=== PATIENT | male | born 1950 | race Caucasian/White ===

== ENCOUNTER 2020-10-19 19:05 | Inpatient (IN) | payer MEDICARE ==
[~2020-10-19] VITALS: Ht 165.1 cm; Wt 81.1 kg
[~2020-10-19 19:05] MED LIST: PIPERACILLIN/TAZOBACTAM (BULK) 4.5 GM in NS (IVPB) 100 ML IV SCH
--- NOTE | 2020-10-19 19:26 | ED Abdominal Pain ---
General Stated Complaint: LOWER ABDOMINAL PAIN Source of Information: Patient Exam Limitations: No Limitations History of Present Illness Date Seen by Provider: Oct 19, 2020 Time Seen by Provider: 19:11 Initial Comments Patient to the emergency room by private conveyance from home with chief complaint that today he started to spearing seeing some left lower quadrant abdominal pain that peaked at about 8 out of 10, cramping and worse with movement or urinating. No dysuria or hematuria. He says he is had blood in his stools for the last year or so off and on and had a colonoscopy about a year and a half ago which revealed nothing pathologic. He does have a history of diverticulitis. He has had no trauma. He took a Fioricet and ondansetron about 2 to 3 hours ago. His pain went from an 8 down to a 4 presently. His nausea is gone still. He has had 2 inguinal hernia repairs but no other intra-abdominal surgeries. He denies fever or chills. Last bowel movement was yesterday. Allergies and Home Medications Allergies Coded Allergies: prochlorperazine (Verified Allergy, Unknown, Psychosis, 10/19/20) Patient Home Medication List Home Medication List Reviewed: Yes Review of Systems Review of Systems Constitutional: No chills, No diaphoresis EENTM: No Blurred Vision, No Double Vision Respiratory: Denies Cough, Denies Shortness of Air Cardiovascular: Denies Chest Pain, Denies Lightheadedness Gastrointestinal: See HPI; Denies Abdomen Distended; Abdominal Pain, Blood Streaked Stools; Denies Constipated, Denies Diarrhea; Nausea; Denies Vomiting Genitourinary: Denies Burning, Denies Discharge Musculoskeletal: No back pain, No joint pain Skin: No pruritus, No rash, No other Psychiatric/Neurological: Denies Headache, Denies Numbness All Other Systems Reviewed Negative Unless Noted: Yes Past Ojfvwdr-Pmaott-Dlyllg Hx Patient Social History Alcohol Use: Denies Use Smoking Status: Never a Smoker Physical Exam Vital Signs Vital Signs - First Documented 10/19/20 19:12 Temp 37.6 Pulse 120 Resp 14 B/P (MAP) 157/97 (117) Pulse Ox 98 O2 Delivery Room Air Capillary Refill : Height/Weight/BMI Height: '" Weight: lbs. oz. kg; BMI Method: General Appearance: WD/WN, moderate distress HEENT: PERRL/EOMI, pharynx normal Neck: full range of motion, normal inspection Respiratory: no respiratory distress, no accessory muscle use Cardiovascular: normal peripheral pulses, regular rate, rhythm Gastrointestinal: normal bowel sounds, soft, tenderness (Left lower quadrant without Rovsing sign) Neurologic/Psychiatric: alert, oriented x 3 Skin: normal color, warm/dry Focused Exam Lactate Level 10/19/20 19:30: Lactic Acid Level 1.93 Lactic Acid Level Laboratory Tests Test 10/19/20 19:30 Lactic Acid Level 1.93 MMOL/L (0.50-2.00) Progress/Results/Core Measures Results/Orders Lab Results Laboratory Tests Test 10/19/20 19:15 10/19/20 19:30 10/19/20 20:11 Range/Units White Blood Count 24.0 H 4.3-11.0 10^3/uL Red Blood Count 5.14 4.35-5.85 10^6/uL Hemoglobin 14.9 13.3-17.7 G/DL Hematocrit 43 40-54 % Mean Corpuscular Volume 83 80-99 FL Mean Corpuscular Hemoglobin 29 25-34 PG Mean Corpuscular Hemoglobin Concent 35 32-36 G/DL Red Cell Distribution Width 12.6 10.0-14.5 % Platelet Count 385 130-400 10^3/uL Mean Platelet Volume 8.9 7.4-10.4 FL Immature Granulocyte % (Auto) 0 % Neutrophils (%) (Auto) 90 H 42-75 % Lymphocytes (%) (Auto) 5 L 12-44 % Monocytes (%) (Auto) 4 0-12 % Eosinophils (%) (Auto) 0 0-10 % Basophils (%) (Auto) 0 0-10 % Neutrophils # (Auto) 21.7 H 1.8-7.8 X 10^3 Lymphocytes # (Auto) 1.3 1.0-4.0 X 10^3 Monocytes # (Auto) 0.9 0.0-1.0 X 10^3 Eosinophils # (Auto) 0.1 0.0-0.3 10^3/uL Basophils # (Auto) 0.0 0.0-0.1 10^3/uL Immature Granulocyte # (Auto) 0.1 0.0-0.1 10^3/uL Neutrophils % (Manual) 93 % Lymphocytes % (Manual) 3 % Monocytes % (Manual) 4 % Target Cells NA Prothrombin Time 12.9 12.2-14.7 SEC INR Comment 0.9 0.8-1.4 Activated Partial Thromboplast Time 26 24-35 SEC Sodium Level 136 135-145 MMOL/L Potassium Level 3.7 3.6-5.0 MMOL/L Chloride Level 99 98-107 MMOL/L Carbon Dioxide Level 27 21-32 MMOL/L Anion Gap 10 5-14 MMOL/L Blood Urea Nitrogen 19 H 7-18 MG/DL Creatinine 1.09 0.60-1.30 MG/DL Estimat Glomerular Filtration Rate > 60 BUN/Creatinine Ratio 17 Glucose Level 150 H 70-105 MG/DL Calcium Level 10.0 8.5-10.1 MG/DL Corrected Calcium 8.5-10.1 MG/DL Total Bilirubin 0.4 0.1-1.0 MG/DL Aspartate Amino Transf (AST/SGOT) 37 H 5-34 U/L Alanine Aminotransferase (ALT/SGPT) 42 0-55 U/L Alkaline Phosphatase 79 40-136 U/L Total Protein 7.7 6.4-8.2 GM/DL Albumin 4.6 H 3.2-4.5 GM/DL Lactic Acid Level 1.93 0.50-2.00 MMOL/L Urine Color YELLOW Urine Clarity CLEAR Urine pH 7.0 5-9 Urine Specific Earth 1.010 L 1.016-1.022 Urine Protein NEGATIVE NEGATIVE Urine Glucose (UA) NEGATIVE NEGATIVE Urine Ketones NEGATIVE NEGATIVE Urine Nitrite NEGATIVE NEGATIVE Urine Bilirubin NEGATIVE NEGATIVE Urine Urobilinogen 0.2 < = 1.0 MG/DL Urine Leukocyte Esterase NEGATIVE NEGATIVE Urine RBC (Auto) NEGATIVE NEGATIVE Urine RBC 0-2 /HPF Urine WBC NONE /HPF Urine Squamous Epithelial Cells 0-2 /HPF Urine Crystals NONE /LPF Urine Bacteria NEGATIVE /HPF Urine Casts NONE /LPF Urine Mucus NEGATIVE /LPF Urine Culture Indicated NO My Orders Orders - [facility] Cbc With Automated Diff (10/19/20 19:26) Comprehensive Metabolic Panel (10/19/20 19:26) Blood Culture (10/19/20 19:26) Sputum Culture (10/19/20:) Urinalysis (10/19/20:) Urine Culture (10/19/20 19:) Protime With Inr (10/19/20 19:) Partial Thromboplastin Time (10/19/20:) Chest 1 View Ap/Pa Only (10/19/20:) Ed Iv/Invasive Line Start (10/19/20:) Ed Iv/Invasive Line Start (10/19/20:) Vital Signs Adult Sepsis Patie Q15M (10/19/20:26) O2 (10/19/20:) Remove Rings In Anticipation O (10/19/20:) Lactic Acid Analyzer (10/19/20:) Lactated Ringers (Lr 1000 Ml Iv Solution (10/19/20 19:30) Ceftriaxone For Iv Use (Rocephin For I (10/19/20:) Metronidazole 500mg/100ml Ivpb (Flagyl 5 (10/19/20:30) Ed Iv/Invasive Line Start (10/19/20:26) Lactated Ringers (Lr 1000 Ml Iv Solution (10/19/20:30) Fentanyl Inj (Sublimaze Injection) (10/19/20:30) Lactated Ringers (Lr 1000 Ml Iv Solution (10/19/20 19:30) Ct Abdomen/Pelvis W (10/19/20:26) Manual Differential (10/19/20 19:15) Iohexol Injection (Omnipaque 350 Mg/Ml 1 (10/19/20 19:45) Received Contrast (Hold Metformin- Contr (10/19/20 19:45) Ns (Ivpb) (Sodium Chloride 0.9% Ivpb Bag (10/19/20 19:45) Fentanyl Inj (Sublimaze Injection) (10/19/20 21:30) Medications Given in ED Current Medications Medications Dose Ordered Sig/Panfilo Route Start Time Stop Time Status Last Admin Dose Admin Ceftriaxone Sodium 1000 mg/ Sterile Water 10 ml @ 200 mls/hr ONCE ONCE IV 10/19/20 19:30 10/19/20 19:32 DC 10/19/20 19:45 200 MLS/HR Fentanyl Citrate 25 mcg ONCE ONCE IVP 10/19/20 19:30 10/19/20 19:31 DC 10/19/20 19:45 25 MCG Iohexol 100 ml ONCE ONCE IV 10/19/20 19:45 10/19/20 19:46 DC 10/19/20 19:56 100 ML Lactated Ringer's 1,000 ml @ 0 mls/hr Q0M ONCE IV 10/19/20 19:30 10/19/20 19:31 DC 10/19/20 19:45 999 MLS/HR Lactated Ringer's 1,000 ml @ 0 mls/hr Q0M ONCE IV 10/19/20 19:30 10/19/20 19:31 DC 10/19/20 21:06 1,000 MLS/HR Metronidazole 100 ml @ 100 mls/hr ONCE ONCE IV 10/19/20 19:30 10/19/20 20:29 DC 10/19/20 19:45 100 MLS/HR Sodium Chloride 100 ml ONCE ONCE IV 10/19/20 19:45 10/19/20 19:46 DC 10/19/20 19:56 100 ML Vital Signs/I&O 10/19/20 10/19/20 10/19/20 19:12 20:10 21:10 Temp 37.6 37.6 37.1 Pulse 120 109 100 Resp 14 14 14 B/P (MAP) 157/97 (117) 133/76 (95) 132/80 (97) Pulse Ox 98 98 99 O2 Delivery Room Air Room Air Progress Progress Note : Time: 19:29 Progress Note Suspect diverticulitis less likely bowel obstruction, appendicitis or other general colitis. Because the pain got worse when he urinated this could be an indicator of inflammation from the bowel or less likely urine related. Sepsis work-up based on his tachycardia of 120 and suspect he will have a elevated white count. 2 L would be greater than 20 mL/kg of fluids. Rocephin and Flagyl should cover for intra-abdominal infection such as diverticulitis. He is indicated he would like something further for pain so we will give 25 mcg of fentanyl since he is opiate ina. Diagnostic Imaging Diagonstic Imaging: Xray Plain Films/CT/US/NM/MRI: chest Comments NAME: DELICIA RADER Kristine [facility] REC#: [id number] PT STATUS: REG ER : 1950 PHYSICIAN: [place] MD ADMIT DATE: 10/19/20/ER FS Draft Date of Exam:10/19/20 CHEST 1 VIEW AP/PA ONLY INDICATION: Chest and abdomen pain. EXAMINATION: AP chest at 8:01 p.m. COMPARISON: There is no prior study available for comparison. FINDINGS: The heart size is within normal limits. There is minimal atelectasis/scar formation at the left lung base. The lungs are otherwise generally clear. There is no sign of failure, pneumonia or a pleural effusion. The mediastinum is not widened. The osseous structures are intact. There is fairly pronounced dextroscoliosis of the thoracic spine. IMPRESSION: 1. There is minimal atelectasis/scar formation at the left lower lobe. There is no acute cardiopulmonary abnormality noted. 2. These results were discussed with Dr. Dain Lake. Dictated on workstation # [id number] Dict: 10/19/202107 Trans: 10/19/202113 [facility] [id number] Interpreted by: DELICIA GUTIERREZ MD Electronically signed by: Reviewed: Reviewed by Me Diagonstic Imaging: CT Plain Films/CT/US/NM/MRI: abdomen, pelvis Comments NAME: PRASANTHDELICIA Carmona [facility] REC#: [id number] PT STATUS: REG ER : 1950 PHYSICIAN: [place] MD ADMIT DATE: 10/19/20/ER FS Draft Date of Exam:10/19/20 CT ABDOMEN/PELVIS W PROCEDURE: CT abdomen and pelvis with contrast. TECHNIQUE: Multiple contiguous axial images were obtained through the abdomen and pelvis after administration of intravenous contrast. Auto Exposure Controls were utilized during the CT exam to meet ALARA standards for radiation dose reduction. All CT scans use one or more of the following dose optimizing techniques: automated exposure control, MA and/or KvP adjustment based on patient size and exam type or iterative reconstruction. INDICATION: Left lower quadrant pain. COMPARISON: There is no prior study available for comparison. FINDINGS: There are numerous diverticula involving the sigmoid and descending colon and there appears to be some thickening of the wall of the junction of the sigmoid and descending colon. There is also some distortion of the pericolic fat in this area and I suspect these findings are related to acute diverticulitis. Furthermore, there are few scattered droplets of gas throughout the upper abdomen. These are probably related to a microperforation of the diverticular disease. There are also two sizable gallstones within the gallbladder. There is no evidence for acute cholecystitis, however. The liver, spleen, pancreas, adrenals, kidneys, aorta and inferior vena cava and portal vein are unremarkable for an acute abnormality. The stomach is filled with fluid and difficult to assess. The urinary bladder and prostate gland are grossly unremarkable. There does appear to be a small amount of fluid within the left inguinal canal. This is of uncertain etiology. The appendix appears to be surgically absent. The bone windows are unremarkable for a fracture or for a destructive lesion. The lung bases are generally clear. IMPRESSION: 1. There is acute diverticulitis of the sigmoid and distal descending colon. The droplets of gas in the upper abdomen are probably secondary to a microperforation related to the diverticular disease of the sigmoid and descending colon. 2. There is cholelithiasis but there is no sign of acute cholecystitis. 3. There is no acute abnormality of the abdomen or pelvis noted otherwise. 4. There is a small amount of fluid in the left inguinal canal. This is of uncertain etiology. 5. These results were discussed with Dr. Dain Lake at the time of this dictation. Dictated on workstation # [id number] Dict: 10/19/202101 Trans: 10/19/202121 [facility] [id number] Interpreted by: DELICIA GUTIERREZ MD Electronically signed by: Reviewed: Reviewed by Me Departure Communication (Admissions) Time/Spoke to Admitting Phy: 21:20 Discussed the case with Dr. Castro, internal medicine and he agrees to admit the patient to the floor with consultation to general surgery [facility]. He agrees with antibiotics Rocephin and Flagyl. Time/Spoke to Consulting Phy: 21:23 Discussed the case of diverticulitis, benign gallstones and small amount of free air in the abdomen without evidence of major perforation with general surgery Dr. Saez and he is okay with a clear liquid diet and will consult on the case. Impression Primary Impression: Diverticulitis of intestine Qualified Codes: K57.32 - Diverticulitis of large intestine without perforation or abscess without bleeding Additional Impression: Sepsis Qualified Codes: A41.9 - Sepsis, unspecified organism Disposition: ADMITTED INPATIENT Condition: Stable Admissions Decision to Admit Reason: Admit from ER (General) Decision to Admit/Date: Oct 19, 2020 Time/Decision to Admit Time: 20:00 Departure-Patient Inst. Referrals: NACHO ARANA MD (PCP/Family) Primary Care Physician [facility] Oct 19, 2020 19:26
[2020-10-19 19:30] LABS: BASOPHILS % (AUTO) 0 % (0-10); EOSINOPHILS # (AUTO) 0.1 10^3/uL (0.0-0.3); EOSINOPHILS % (AUTO) 0 % (0-10); HEMATOCRIT 43 % (40-54); HEMOGLOBIN 14.9 G/DL (13.3-17.7); LYMPHOCYTES # (AUTO) 1.3 X 10^3 (1.0-4.0); LYMPHOCYTES % (AUTO) 5 % (12-44); MEAN CORPUSCULAR HEMOGLOBIN 29 PG (25-34); MEAN CORPUSCULAR HGB CONC 35 G/DL (32-36); MEAN CORPUSCULAR VOLUME 83 FL (80-99); MEAN PLATELET VOLUME 8.9 FL (7.4-10.4); MONOCYTES # (AUTO) 0.9 X 10^3 (0.0-1.0); MONOCYTES % (AUTO) 4 % (0-12); NEUTROPHILS # (AUTO) 21.7 X 10^3 (1.8-7.8); NEUTROPHILS % (AUTO) 90 % (42-75); PLATELET COUNT 385 10^3/uL (130-400)
[2020-10-19] MEDS ORDERED: metroNIDAZOLE 500MG/100ML IVPB 100 ML IV ONE (19:30)
[2020-10-19] MEDS ORDERED: fentaNYL INJ 100 MCG/2 ML AMP IVP ONE ×2 (19:30→21:30)
[2020-10-19] MEDS ORDERED: LACTATED RINGERS 1,000 ML IV ONE ×3 (19:30)
[2020-10-19] MEDS ORDERED: cefTRIAXone FOR IV USE 1,000 MG in WATER (STERILE) FOR INJECTION 10 ML IV ONE (19:30)
[2020-10-19 19:41] LABS: INR 0.9 (0.8-1.4); PROTHROMBIN TIME PATIENT 12.9 SEC (12.2-14.7)
[2020-10-19] MEDS ORDERED: NS 100 ML (IVPB) BAG IV ONE (19:45)
[2020-10-19] MEDS ORDERED: HOLD METFORMIN - RECEIVED CONTRAST 20 ML VIAL IV SCH (19:45)
[2020-10-19] MEDS ORDERED: IOHEXOL 350 MG/ML 100 ML (OMNIPAQUE 350) VIAL IV ONE (19:45)
[2020-10-19 19:48] LABS: ALANINE AMINOTRANSFERASE 42 U/L (0-55); ALBUMIN 4.6 GM/DL (3.2-4.5); ALKALINE PHOSPHATASE 79 U/L (40-136); BILIRUBIN,TOTAL 0.4 MG/DL (0.1-1.0); BUN/CREATININE RATIO 17; CARBON DIOXIDE 27 MMOL/L (21-32); CHLORIDE 99 MMOL/L (98-107); CREATININE SERUM 1.09 MG/DL (0.60-1.30); GFR ESTIMATED > 60; GLUCOSE 150 MG/DL (70-105); POTASSIUM 3.7 MMOL/L (3.6-5.0); SODIUM 136 MMOL/L (135-145); TOTAL PROTEIN 7.7 GM/DL (6.4-8.2)
[2020-10-19 19:49] LABS: LYMPHOCYTES % (MANUAL) 3 %; MONOCYTES % (MANUAL) 4 %; NEUTROPHILS % (MANUAL) 93 %
[2020-10-19 20:19] LABS: BACTERIA,URINE NEGATIVE /HPF; BILIRUBIN,URINE NEGATIVE (NEGATIVE); CLARITY,URINE CLEAR; COLOR,URINE YELLOW; GLUCOSE, URINE (UA) NEGATIVE (NEGATIVE); KETONES,URINE NEGATIVE (NEGATIVE); LEUKOCYTE ESTERASE ,URINE NEGATIVE (NEGATIVE); NITRITE,URINE NEGATIVE (NEGATIVE); PROTEIN,URINE NEGATIVE (NEGATIVE); RBC,URINE 0-2 /HPF; SQUAMOUS EPITHELIAL CELL,UR 0-2 /HPF
--- NOTE | 2020-10-19 21:14 | Diagnostic Imaging Report ---
INDICATION: Chest and abdomen pain. EXAMINATION: AP chest at 8:01 p.m. COMPARISON: There is no prior study available for comparison. FINDINGS: The heart size is within normal limits. There is minimal atelectasis/scar formation at the left lung base. The lungs are otherwise generally clear. There is no sign of failure, pneumonia or a pleural effusion. The mediastinum is not widened. The osseous structures are intact. There is fairly pronounced dextroscoliosis of the thoracic spine. IMPRESSION: 1. There is minimal atelectasis/scar formation at the left lower lobe. There is no acute cardiopulmonary abnormality noted. 2. These results were discussed with Dr. Dain Lake. Dictated by: Dictated on workstation # [id number]
--- NOTE | 2020-10-19 21:23 | Diagnostic Imaging Report ---
PROCEDURE: CT abdomen and pelvis with contrast. TECHNIQUE: Multiple contiguous axial images were obtained through the abdomen and pelvis after administration of intravenous contrast. Auto Exposure Controls were utilized during the CT exam to meet ALARA standards for radiation dose reduction. All CT scans use one or more of the following dose optimizing techniques: automated exposure control, MA and/or KvP adjustment based on patient size and exam type or iterative reconstruction. INDICATION: Left lower quadrant pain. COMPARISON: There is no prior study available for comparison. FINDINGS: There are numerous diverticula involving the sigmoid and descending colon and there appears to be some thickening of the wall of the junction of the sigmoid and descending colon. There is also some distortion of the pericolic fat in this area and I suspect these findings are related to acute diverticulitis. Furthermore, there are few scattered droplets of gas throughout the upper abdomen. These are probably related to a microperforation of the diverticular disease. There are also two sizable gallstones within the gallbladder. There is no evidence for acute cholecystitis, however. The liver, spleen, pancreas, adrenals, kidneys, aorta and inferior vena cava and portal vein are unremarkable for an acute abnormality. The stomach is filled with fluid and difficult to assess. The urinary bladder and prostate gland are grossly unremarkable. There does appear to be a small amount of fluid within the left inguinal canal. This is of uncertain etiology. The appendix appears to be surgically absent. The bone windows are unremarkable for a fracture or for a destructive lesion. The lung bases are generally clear. IMPRESSION: 1. There is acute diverticulitis of the sigmoid and distal descending colon. The droplets of gas in the upper abdomen are probably secondary to a microperforation related to the diverticular disease of the sigmoid and descending colon. 2. There is cholelithiasis but there is no sign of acute cholecystitis. 3. There is no acute abnormality of the abdomen or pelvis noted otherwise. 4. There is a small amount of fluid in the left inguinal canal. This is of uncertain etiology. 5. These results were discussed with Dr. Dain Lake at the time of this dictation. CRITICAL FINDING Dictated by: Dictated on workstation # [id number]
[2020-10-19] MEDS ORDERED: HYDROcodone/APAP 7.5 MG/325 MG (LORTAB, LORCET PLUS) TABLET PO PRN (23:00)
[2020-10-19 23:37] VITALS: BP 134/77
[2020-10-19] MEDS ORDERED: ONDANSETRON 4 MG/2 ML (SDV) Z0FRAN IV PRN (23:45)
[2020-10-19] MEDS ORDERED: ACETAMINOPHEN 650 MG SUPP (TYLENOL) PR PRN (23:45)
[2020-10-19] MEDS ORDERED: fentaNYL INJ 100 MCG/2 ML AMP IV PRN (23:45)
[2020-10-19] MEDS: LACTATED RINGERS 1,000 ML IV SCH (23:58)
[2020-10-19] MEDS: fentaNYL INJ 100 MCG/2 ML AMP IV PRN (23:59)
[2020-10-20] MEDS ORDERED: metroNIDAZOLE 500MG/100ML IVPB 100 ML IV SCH
[2020-10-20] MEDS ORDERED: PIPERACILLIN/TAZOBACTAM (BULK) 4.5 GM in NS (IVPB) 100 ML IV SCH ×2
--- NOTE | 2020-10-20 | CONSULTATION REPORT ---
DATE OF SERVICE: ATTENDING PRIMARY CARE PHYSICIAN: Robbi Bernard MD ADMITTING PHYSICIAN: Alfredito Castro MD HISTORY OF PRESENT ILLNESS: The patient is a 70-year-old male who presented to [facility] with pain in the left lower abdominal quadrant, starting earlier today. He states that the pain is crampy in nature and worse with movements as well as upon urinating. He does not report any dysuria, no hematuria as well as no pneumaturia. He also does report that he has had a history of constipation and he has noticed small amounts of blood per rectum, which is usually self-limited on an intermittent basis. He also has had a history of a noncomplicated diverticulitis in the past as well. A CT scan was performed, which did show significant diverticulitis of the sigmoid colon as well as small surrounding contained air bubbles consistent with a contained perforation. He does not report any fever, no chills. At this time, he is unsure when his last colonoscopy was. PAST MEDICAL HISTORY: Hypertension, history of diverticulosis and diverticulitis. PAST SURGICAL HISTORY: Bilateral inguinal hernia repair. ALLERGIES: PROCHLORPERAZINE. MEDICATIONS: See medication reconciliation. SOCIAL HISTORY: Negative smoke, negative alcohol. FAMILY HISTORY: Noncontributory. VITAL SIGNS: Temperature 37.1, blood pressure 132/80, pulse 100, respirations 14, pulse ox 99% on room air. REVIEW OF SYSTEMS: Well-nourished male currently in no acute distress. He is not experiencing any shortness of breath or difficulty breathing. No chest pain, palpitations, diaphoresis. No nausea or vomiting. No diarrhea with a history of constipation. He has also had some small amounts of self-limited blood per rectum with bowel movements. He also has pain in the left lower abdominal quadrant. No fever, chills, no recent inadvertent weight loss. All other review of systems negative. PHYSICAL EXAMINATION: CHEST: Clear. Good breath sounds bilaterally. HEART: Regular, no murmurs. EXTREMITIES: No lower extremity edema, negative Homans sign. HEENT: No scleral icterus. NECK: No cervical lymphadenopathy. ABDOMEN: Soft, nondistended. There is pain in the left lower abdominal quadrant with voluntary guarding, no rebound. SKIN: Warm, dry. LABORATORY DATA: WBC 24.0, hemoglobin 14.9, hematocrit 43, platelets 385. BUN 19, creatinine 1.09. ASSESSMENT AND PLAN: A 70-year-old male with sigmoid diverticulitis with microperforation. He has also had previous episodes of diverticulitis in the past. Due to his recurrent episodes of diverticulitis as well as complications related to diverticulitis with a microperforation, he may be better served with sigmoid colonic resection to prevent further complications from the diverticulosis and complications related to diverticulitis. At this time, we will recommend conservative management with IV hydration, bowel rest as well as broad spectrum antibiotics and allow the inflammation to subside. In approximately 6 to 8 weeks, we will recommend a followup colonoscopy to rule out malignancy and then give him the option for continued conservative management with a high fiber diet versus resection of the diseased portion of the sigmoid colon. Job ID: [id number] DocumentID: [id number] Dictated Date: 10/19/2020 23:06:20 Process Control Manager Date: 10/19/2020 23:59:15 Dictated By: HALIMA PRIEST MD
[2020-10-20] MEDS ORDERED: PIPERACILLIN/TAZO 4.5 GM VIAL (ZOSYN) IV ONE (00:07)
[2020-10-20] MEDS: metroNIDAZOLE 500MG/100ML IVPB 100 ML IV SCH ×3 (03:34→20:08)
[2020-10-20] MEDS: fentaNYL INJ 100 MCG/2 ML AMP IV PRN ×4 (03:42→20:19)
[2020-10-20 03:57] VITALS: BP 112/62
[2020-10-20 05:00] LABS: BASOPHILS % (AUTO) 0 % (0-10); EOSINOPHILS # (AUTO) 0.1 10^3/uL (0.0-0.3); EOSINOPHILS % (AUTO) 1 % (0-10); HEMATOCRIT 37 % (40-54); HEMOGLOBIN 12.3 g/dL (13.3-17.7); LYMPHOCYTES # (AUTO) 1.4 10^3/uL (1.0-4.0); LYMPHOCYTES % (AUTO) 10 % (12-44); MEAN CORPUSCULAR HEMOGLOBIN 29 pg (25-34); MEAN CORPUSCULAR HGB CONC 34 g/dL (32-36); MEAN CORPUSCULAR VOLUME 85 fL (80-99); MEAN PLATELET VOLUME 9.4 fL (9.0-12.2); MONOCYTES # (AUTO) 0.6 10^3/uL (0.0-1.0); MONOCYTES % (AUTO) 4 % (0-12); NEUTROPHILS # (AUTO) 12.2 10^3/uL (1.8-7.8); NEUTROPHILS % (AUTO) 85 % (42-75); PLATELET COUNT 255 10^3/uL (130-400); WHITE BLOOD COUNT 14.3 10^3/uL (4.3-11.0)
[2020-10-20 05:17] LABS: ALBUMIN 3.5 GM/DL (3.2-4.5); CHLORIDE 104 MMOL/L (98-107); POTASSIUM 3.7 MMOL/L (3.6-5.0); SODIUM 138 MMOL/L (135-145)
[2020-10-20 05:18] LABS: CALCIUM 8.5 MG/DL (8.5-10.1)
[2020-10-20 05:19] LABS: GLUCOSE 133 MG/DL (70-105); TOTAL PROTEIN 5.9 GM/DL (6.4-8.2)
[2020-10-20 05:20] LABS: CARBON DIOXIDE 22 MMOL/L (21-32)
[2020-10-20 05:23] LABS: ALKALINE PHOSPHATASE 57 U/L (40-136); CREATININE SERUM 1.14 MG/DL (0.60-1.30); GFR ESTIMATED > 60
[2020-10-20 05:24] LABS: BUN/CREATININE RATIO 13
[2020-10-20 05:26] LABS: ALANINE AMINOTRANSFERASE 62 U/L (0-55)
[2020-10-20 07:53] VITALS: BP 119/70
[2020-10-20] MEDS: cefTRIAXone FOR IV USE 1,000 MG in WATER (STERILE) FOR INJECTION 10 ML IV SCH (08:13)
[2020-10-20] MEDS: PANTOPRAZOLE 40 MG (PROTONIX) VIAL IV SCH (08:14)
[2020-10-20] MEDS: PIPERACILLIN/TAZOBACTAM (BULK) 4.5 GM in NS (IVPB) 100 ML IV SCH ×3 (08:15→23:36)
[2020-10-20] MEDS: LACTATED RINGERS 1,000 ML IV SCH ×3 (08:15→20:09)
[2020-10-20] MEDS: ACETAMINOPHEN 325 MG TABLET PO PRN ×3 (08:31→23:36)
--- NOTE | 2020-10-20 11:18 | History & Physical-Hospitalist ---
History of Present Illness HPI/Chief Complaint Patient to the emergency room by private conveyance from home with chief complaint that today he started to spearing seeing some left lower quadrant abdominal pain that peaked at about 8 out of 10, cramping and worse with movement or urinating. No dysuria or hematuria. He says he is had blood in his stools for the last year or so off and on and had a colonoscopy about a year and a half ago which revealed nothing pathologic. He does have a history of diverticulitis. He has had no trauma. He took a Fioricet and ondansetron about 2 to 3 hours ago. His pain went from an 8 down to a 4 presently. His nausea is gone still. He has had 2 inguinal hernia repairs but no other intra-abdominal surgeries. He denies fever or chills. Last bowel movement was yesterday Upon my arrival patient reports no diarrhea still having pain with movement denied any night sweats chills or fever last night but had been chilling at home. He denies any diaphragmatic type pain back or shoulder pain. Date Seen 10/20/20 Time Seen by a Provider: 08:00 Attending Physician Christy Mensah MD PCP Robbi Bernard MD Referring Physician Date of Admission Oct 19, 2020 at 23:00 Home Medications & Allergies Home Medications Reviewed patient Home Medication Reconciliation performed by pharmacy medication reconciliations loom technician and/or nursing. Patients Allergies have been reviewed. Allergies Allergies Coded Allergies prochlorperazine (Verified Allergy, Unknown, Psychosis, 10/19/20) Past Fmilvmc-Lsemut-Zhtllt Hx Past Med/Social Hx: Reviewed and Corrections made Patient Social History Alcohol Use: Denies Use Recreational Drug Use: No Smoking Status: Never a Smoker 2nd Hand Smoke Exposure: No Recent Foreign Travel: No Contact w/other who traveled: No Recent Hopitalizations: No Recent Infectious Disease Expo: No Immunizations Up To Date Date of Influenza Vaccine: Jun 02, 2020 Seasonal Allergies Seasonal Allergies: No Past Medical History Surgeries: Abdominal Gastrointestinal: Diverticulosis History of Blood Disorders: No Review of Systems Constitutional: see HPI Physical Exam Physical Exam Vital Signs Vital Signs - First Documented 10/19/20 19:12 Temp 37.6 Pulse 120 Resp 14 B/P (MAP) 157/97 (117) Pulse Ox 98 O2 Delivery Room Air Capillary Refill : Less Than 3 Seconds Height, Weight, BMI Height: '" Weight: lbs. oz. kg; 29.75 BMI Method: General Appearance: Mild Distress Respiratory: Chest Non Tender, Lungs Clear, Normal Breath Sounds, No Accessory Muscle Use, No Respiratory Distress Cardiovascular: Regular Rate, Rhythm, No Edema, No Gallop, No JVD, No Murmur, Normal Peripheral Pulses Gastrointestinal: Other (Predominant left mid and left lower quadrant abdominal pain to palpation no masslike effect or organomegaly noted abdomen is soft there is guarding in the left lower quadrant bowel sounds are present but hypoactive no bruits are noted. No organomegaly noted.) Extremity: Normal Inspection, Non Tender, No Pedal Edema Neurologic/Psychiatric: Alert, Oriented x3 Results Results/Procedures Labs Laboratory Tests 10/19/20 19:15 10/20/20 04:42 Patient resulted labs reviewed. Assessment/Plan Admission Diagnosis 1. Acute diverticulitis with perforation responding to conservative management continue IV fluids clear liquid diet and antibiotics no evidence for sepsis this morning. Admission Status: Inpatient Order (span 2 midnights) Reason for Inpatient Admission: See admission diagnosis. CHRISTY MENSAH MD Oct 20, 2020 11:18
[2020-10-20 11:32] VITALS: BP 121/72
[2020-10-20 15:40] VITALS: BP 113/61
[2020-10-20 20:44] VITALS: BP 133/74
[2020-10-20 23:46] VITALS: BP 122/72
[2020-10-21] MEDS: LACTATED RINGERS 1,000 ML IV SCH ×2 (02:25→03:34)
[2020-10-21] MEDS: metroNIDAZOLE 500MG/100ML IVPB 100 ML IV SCH ×3 (03:34→19:54)
[2020-10-21 03:47] VITALS: BP 108/57
[2020-10-21 06:42] LABS: BASOPHILS % (AUTO) 0 % (0-10); EOSINOPHILS # (AUTO) 0.1 10^3/uL (0.0-0.3); EOSINOPHILS % (AUTO) 1 % (0-10); HEMATOCRIT 35 % (40-54); HEMOGLOBIN 11.9 g/dL (13.3-17.7); LYMPHOCYTES # (AUTO) 0.9 10^3/uL (1.0-4.0); LYMPHOCYTES % (AUTO) 8 % (12-44); MEAN CORPUSCULAR HEMOGLOBIN 29 pg (25-34); MEAN CORPUSCULAR HGB CONC 34 g/dL (32-36); MEAN CORPUSCULAR VOLUME 86 fL (80-99); MEAN PLATELET VOLUME 9.2 fL (9.0-12.2); MONOCYTES # (AUTO) 0.5 10^3/uL (0.0-1.0); MONOCYTES % (AUTO) 5 % (0-12); NEUTROPHILS # (AUTO) 9.1 10^3/uL (1.8-7.8); NEUTROPHILS % (AUTO) 86 % (42-75); PLATELET COUNT 214 10^3/uL (130-400); WHITE BLOOD COUNT 10.6 10^3/uL (4.3-11.0)
[2020-10-21 07:08] LABS: ALBUMIN 3.3 GM/DL (3.2-4.5); CHLORIDE 107 MMOL/L (98-107); POTASSIUM 3.7 MMOL/L (3.6-5.0); SODIUM 140 MMOL/L (135-145)
[2020-10-21 07:09] LABS: CALCIUM 8.2 MG/DL (8.5-10.1)
[2020-10-21 07:10] LABS: GLUCOSE 115 MG/DL (70-105); TOTAL PROTEIN 5.8 GM/DL (6.4-8.2)
[2020-10-21 07:11] LABS: CARBON DIOXIDE 24 MMOL/L (21-32)
[2020-10-21 07:12] LABS: BILIRUBIN,TOTAL 0.8 MG/DL (0.1-1.0)
[2020-10-21 07:14] LABS: ALKALINE PHOSPHATASE 61 U/L (40-136); GFR ESTIMATED > 60
[2020-10-21 07:15] LABS: BUN/CREATININE RATIO 9
[2020-10-21 07:17] LABS: ALANINE AMINOTRANSFERASE 66 U/L (0-55)
[2020-10-21 07:47] VITALS: BP 128/75
[2020-10-21] MEDS: PIPERACILLIN/TAZOBACTAM (BULK) 4.5 GM in NS (IVPB) 100 ML IV SCH ×3 (08:19→23:35)
[2020-10-21] MEDS: PANTOPRAZOLE 40 MG (PROTONIX) VIAL IV SCH (08:19)
[2020-10-21] MEDS: cefTRIAXone FOR IV USE 1,000 MG in WATER (STERILE) FOR INJECTION 10 ML IV SCH (08:19)
[2020-10-21] MEDS ORDERED: LOSA1TAB23 PO (10:05)
[2020-10-21] MEDS ORDERED: FAMO20TA3 PO (10:05)
[2020-10-21] MEDS ORDERED: EZET10TA49 PO (10:05)
[2020-10-21] MEDS ORDERED: METF-397 PO (10:05)
[2020-10-21] MEDS ORDERED: ASPI-1238 PO (10:05)
--- NOTE | 2020-10-21 11:05 | Progress Note - Hospitalist ---
BETTINA GLORIA MED STUDENT 10/21/20 1105: Subjective HPI/CC On Admission Date Seen by Provider: Oct 21, 2020 Time Seen by Provider: 08:00 Patient to the emergency room by private conveyance from home with chief complaint that today he started to spearing seeing some left lower quadrant abdominal pain that peaked at about 8 out of 10, cramping and worse with movement or urinating. No dysuria or hematuria. He says he is had blood in his stools for the last year or so off and on and had a colonoscopy about a year and a half ago which revealed nothing pathologic. He does have a history of diverticulitis. He has had no trauma. He took a Fioricet and ondansetron about 2 to 3 hours ago. His pain went from an 8 down to a 4 presently. His nausea is gone still. He has had 2 inguinal hernia repairs but no other intra-abdominal surgeries. He denies fever or chills. Last bowel movement was yesterday Upon my arrival patient reports no diarrhea still having pain with movement denied any night sweats chills or fever last night but had been chilling at home. He denies any diaphragmatic type pain back or shoulder pain. Subjective/Events-last exam Pt awake and lying in bed upon entry. Pt goes by Vitor. Pt in good spirits and explains how he is feeling much better than when he initially came to the hospital. Pt c/o LLQ pain that has significantly decreased and denies other complaints. Notes [place] has not been in this AM to see him yet. No acute events over night. Review of Systems General: No Chills, No Fatigue HEENT: No Head Aches, No Dysphasia Pulmonary: No Dyspnea, No Cough Cardiovascular: No: Chest Pain, Palpitations Gastrointestinal: Abdominal Pain (LLQ); No: Nausea, Vomiting Genitourinary: No Dysuria, No Hematuria Musculoskeletal: No: back pain, leg pain Neurological: No: Weakness, Numbness Focused Exam Lactate Level 10/19/20 19:30: Lactic Acid Level 1.93 Objective Exam Vital Signs Vital Signs Date Time Temp Pulse Resp B/P (MAP) Pulse Ox O2 Delivery O2 Flow Rate FiO2 10/21/20 08:00 96 Room Air 10/21/20 07:47 36.9 94 20 128/75 (92) Capillary Refill : Less Than 3 Seconds General Appearance: No Apparent Distress, WD/WN HEENT: PERRL/EOMI, Moist Mucous Membranes Neck: Full Range of Motion, Normal Inspection, Supple Respiratory: Chest Non Tender, Lungs Clear, Normal Breath Sounds, No Accessory Muscle Use, No Respiratory Distress Cardiovascular: Regular Rate, Rhythm, No Edema, No Gallop, No Murmur Gastrointestinal: Normal Bowel Sounds, Guarding, Tenderness (LLQ) Rectal: Deferred Back: No Vertebral Tenderness Extremity: Normal Inspection, Normal Range of Motion, Non Tender, No Calf Tenderness, No Pedal Edema Neurologic/Psychiatric: Alert, Oriented x3, No Motor/Sensory Deficits, Normal Mood/Affect Skin: Normal Color, Warm/Dry Results/Procedures Lab Laboratory Tests 10/21/20 06:20 Patient resulted labs reviewed. Assessment/Plan Assessment and Plan Assess & Plan/Chief Complaint ASSESSMENT: Diverticulitis- WBC 10.6 Microperforation contained Hx of blood in stool PLAN: PT/OT Decrease IV fluids due to increased oral intake Continue abx Possible DC tomorrow depending on BAILEY Carreno DO 10/22/20 0617: Subjective Subjective/Events-last exam Pt goes by Vitor dejesus IV fluids since he is drinking really well Dr. Saez is managing the contained perforation from diverticulitis Last had a diverticulitis episode 12 years ago at the bedside Antibiotics maintained PT and OT ordered Doing much better Review of Systems Gastrointestinal: Abdominal Pain (LLQ) Objective Exam General Appearance: No Apparent Distress, WD/WN Respiratory: Chest Non Tender, Lungs Clear, Normal Breath Sounds, No Accessory Muscle Use, No Respiratory Distress Cardiovascular: Regular Rate, Rhythm, No Edema, No Gallop, No JVD, No Murmur, Normal Peripheral Pulses Neurologic/Psychiatric: Alert, Oriented x3, No Motor/Sensory Deficits, Normal Mood/Affect Assessment/Plan Assessment and Plan Assess & Plan/Chief Complaint Pain management IV abx CLD Supervisory-Addendum Brief Verification & Attestation Participated in pt care: history, MDM, physical Personally performed: exam, history, MDM, supervision of care Care discussed with: Medical Student Procedures: n/a Results interpretation: Verified all documentation Verification and Attestation of Medical Student E/M Service A medical student performed and documented this service in my presence. I reviewed and verified all information documented by the medical student and made modifications to such information, when appropriate. I personally performed the physical exam and medical decision making. Bailey Cuevas, Oct 22, 2020,06:16 BETTINA GLORIA MED STUDENT Oct 21, 2020 11:05 BAILEY CUEVAS DO Oct 22, 2020 06:17
--- NOTE | 2020-10-21 11:36 | Occ Therapy Progress Note ---
Therapy Progress Note OT orders received/ chart reviewed. Per PT, pt able to don own shoes, IND in room. No skilled visit completed due to pt being at PLOF. OT to wen/aguila. ERASMO VU OTR Oct 21, 2020 11:36
--- NOTE | 2020-10-21 11:54 | Physical Therapy Evaluation ---
PT Evaluation-General Medical Diagnosis Admission Date Oct 19, 2020 at 23:00 Medical Diagnosis: Abdominal Pain Onset Date: Oct 20, 2020 Therapy Diagnosis Therapy Diagnosis: Impaired functional endurance Precautions Precautions/Isolations: Standard Precautions Weight Bear Status Right Lower Extremity: Right Full Weight Bearing Left Lower Extremity: Left Full Weight Bearing Referral Physician: Javed Reason for Referral: Evaluation/Treatment Medical History Current History ER secondary to abdominal pain Reviewed History: No Social History Home: Single Level Current Living Status: Spouse Entry Into Home: Level Entry Prior Prior Level of Function SCALE: Activities may be completed with or without assistive devices. 3-Cvvjcznwfu-xbecqec completes the activity by him/herself with no assistance from a helper. 5-Set-up or Clean-up Assistance-helper sets up or cleans up; patient completes activity. Hershey assists only prior to or following the activity. 4-Supervision or Touching Assistance-helper provides verbal cues and/or touching/steadying and/or contact guard assistance as patient completes activity. Assistance may be provided throughout the activity or intermittently. 3-Partial/Moderate Assistance-helper does LESS THAN HALF the effort. Hershey lifts, holds or supports trunk or limbs, but provides less than half the effort. 2-Substantial/Maximal Assistance-helper does MORE THAN HALF the effort. Hershey lifts or holds trunk or limbs and provides more than half the effort. 0-Rcydmlakz-bdgifg does ALL the effort. Patient does none of the effort to complete the activity. Or, the assistance of 2 or more helpers is required for the patient to complete the activity. If activity was not attempted, code reason: 7-Patient Refused. 9-Not Applicable-not attempted and the patient did not perform the activity before the current illness, exacerbation or injury. 10-Not Attempted due to Environmental Limitations-(lack of equipment, weather restraints, etc.). 88-Not Attempted due to Medical Conditions or Safety Concerns. Bed Mobility: 6 Transfers (B,C,W/C): 6 Gait: 6 Stairs: 6 Wheelchair Mobility: 6 Indoor Mobility (Ambulation): Independent Stairs: Independent Prior Devices Use: None PT Evaluation-Current Subjective Patient willingly agreed to participate in PT. Patient had no current pain ratings at this time. Pt/Family Goals [place] with mobility Objective Patient Orientation: Person, Place, Time Attachments: IV ROM/Strength ROM Upper Extremities WNL global ROM Lower Extremities WNL global Strength Upper Extremities WNL global Strength Lower Extremities WNL global Integumentary/Posture Integumentary See nursing report Posture Minimal kyphotic Neuromuscular (Tone, Coordination, Reflexes) WNL Sensory Vision: Functional Hearing: Functional Sensation Right Upper Extremit: Intact Sensation Left Upper Extremity: Intact Sensation Right Lower Extremit: Intact Sensation Left Lower Extremity: Intact Transfers Roll Left to Right (QC): 6 Sit to Lying (QC): 6 Lying to Sitting/Side of Bed(Q: 6 Sit to Stand (QC): 6 Chair/Hap-ru-Gnkko Xfer(QC): 6 Patient is independent with all transfers; patient donned tennis shoes on his ow n without difficulty. Gait Does the Patient Walk?: Yes Mode of Locomotion: Walk Anticipated Mode of Locomotion: Walk Walk 10 feet (QC): 6 Walk 50 ft with 2 Turns(QC): 6 Walk 150 ft (QC): 6 Distance: 600' Gait Assistive Device: None Balance Sitting Static: Normal Sitting Dynamic: Normal Standing Static: Normal Standing Dynamic: Normal Assessment/Needs Patient currently at [facility] with complete independence, no PT indicated at this time. Rehab Potential: Good PT Plan Treatment/Plan Treatment Plan: Discontinue PT, goals met Patient currently at [facility] with all activities, PT goals met with complete independence. Treatment Duration: Oct 21, 2020 Frequency: 1 time per week (PT not indicated) Estimated Hrs Per Day: .25 hour per day Patient and/or Family Agrees t: Yes Discharge Recommendations Therapy Discharge Recommendati: Home & Family Equpiment Recommendations-D/C: None Time/GCodes Time In: 1120 Time Out: 1132 Total Billed Treatment Time: 12 Total Billed Treatment 1 visit: EVL: 12' NORA ELDER PT Oct 21, 2020 11:54
[2020-10-21 12:00] VITALS: BP 128/75
[2020-10-21] MEDS: fentaNYL INJ 100 MCG/2 ML AMP IV PRN (13:41)
[2020-10-21 15:42] VITALS: BP 118/66
--- NOTE | 2020-10-21 17:11 | Progress Note ---
Subjective Date Seen by a Provider: Oct 21, 2020 Time Seen by a Provider: 16:30 Subjective/Events-last exam Patient seen with Dr. Saez. Patient reports doing well. Denies any N/V. Reports pain is much improved but finishing machine tender. Passing flatus, no BM yet. Focused Exam Lactate Level 10/19/20 19:30: Lactic Acid Level 1.93 Objective Exam Vital Signs Date Time Temp Pulse Resp B/P (MAP) Pulse Ox O2 Delivery O2 Flow Rate FiO2 10/21/20 15:42 37.2 89 18 118/66 (83) 94 Room Air 10/21/20 12:00 37.5 83 20 128/75 (92) 96 Room Air 10/21/20 08:00 96 Room Air 10/21/20 07:47 36.9 94 20 128/75 (92) 96 Room Air 10/21/20 03:47 36.9 86 18 108/57 (74) 94 Room Air 10/20/20 23:46 37.5 96 16 122/72 (89) 95 Room Air 10/20/20 20:44 37.6 88 20 133/74 (93) 96 Room Air 10/20/20 19:47 Room Air I & O 10/21/20 06:59 Intake Total 3680 ml Output Total 2550 ml Balance 1130 ml Capillary Refill : Less Than 3 Seconds General Appearance: No Apparent Distress, WD/WN Neck: Full Range of Motion, Normal Inspection Respiratory: No Accessory Muscle Use, No Respiratory Distress Cardiovascular: Regular Rate, Rhythm, No Edema Gastrointestinal: normal bowel sounds, soft, tenderness (LLQ) Extremity: Normal Inspection, Normal Range of Motion Neurologic/Psychiatric: Alert, Oriented x3 Skin: Normal Color, Warm/Dry Results Lab Laboratory Tests 10/21/20 06:20: White Blood Count 10.6, Red Blood Count 4.05L, Hemoglobin 11.9L, Hematocrit 35L, Mean Corpuscular Volume 86, Mean Corpuscular Hemoglobin 29, Mean Corpuscular Hemoglobin Concent 34, Red Cell Distribution Width 12.9, Platelet Count 214, Mean Platelet Volume 9.2, Immature Granulocyte % (Auto) 1, Neutrophils (%) (Auto) 86H, Lymphocytes (%) (Auto) 8L, Monocytes (%) (Auto) 5, Eosinophils (%) (Auto) 1, Basophils (%) (Auto) 0, Neutrophils # (Auto) 9.1H, Lymphocytes # (Auto) 0.9L, Monocytes # (Auto) 0.5, Eosinophils # (Auto) 0.1, Basophils # (Auto) 0.0, Immature Granulocyte # (Auto) 0.1, Sodium Level 140, Potassium Level 3.7, Chloride Level 107, Carbon Dioxide Level 24, Anion Gap 9, Blood Urea Nitrogen 9, Creatinine 1.00, Estimat Glomerular Filtration Rate > 60, BUN/Creatinine Ratio 9, Glucose Level 115H, Calcium Level 8.2L, Corrected Calcium 8.8, Total Bilirubin 0.8, Aspartate Amino Transf (AST/SGOT) 28, Alanine Aminotransferase (ALT/SGPT) 66H, Alkaline Phosphatase 61, Total Protein 5.8L, Albumin 3.3 Microbiology 10/19/20 Urine Culture - Final, Complete NO GROWTH 10/19/20 Blood Culture - Preliminary, Resulted No growth Assessment/Plan Assessment/Plan Assess & Plan/Chief Complaint A 70 year old male with sigmoid diverticulitis VSS WBC 10.6 Pain improved - will advance diet Continue abx, pain, and nausea medication Home tomorrow AIME GONZALEZ APRN Oct 21, 2020 17:11
[2020-10-21] MEDS: ACETAMINOPHEN 325 MG TABLET PO PRN (19:47)
[2020-10-22] VITALS: BP 94/50
[2020-10-22] MEDS: metroNIDAZOLE 500MG/100ML IVPB 100 ML IV SCH ×2 (03:41→11:46)
[2020-10-22] MEDS: ACETAMINOPHEN 325 MG TABLET PO PRN (03:50)
[2020-10-22 05:39] LABS: BASOPHILS % (AUTO) 0 % (0-10); EOSINOPHILS # (AUTO) 0.3 10^3/uL (0.0-0.3); EOSINOPHILS % (AUTO) 3 % (0-10); HEMATOCRIT 34 % (40-54); HEMOGLOBIN 11.4 g/dL (13.3-17.7); LYMPHOCYTES # (AUTO) 0.9 10^3/uL (1.0-4.0); LYMPHOCYTES % (AUTO) 11 % (12-44); MEAN CORPUSCULAR HEMOGLOBIN 29 pg (25-34); MEAN CORPUSCULAR HGB CONC 34 g/dL (32-36); MEAN CORPUSCULAR VOLUME 86 fL (80-99); MEAN PLATELET VOLUME 9.6 fL (9.0-12.2); MONOCYTES # (AUTO) 0.5 10^3/uL (0.0-1.0); MONOCYTES % (AUTO) 6 % (0-12); NEUTROPHILS # (AUTO) 6.6 10^3/uL (1.8-7.8); NEUTROPHILS % (AUTO) 80 % (42-75); PLATELET COUNT 217 10^3/uL (130-400); WHITE BLOOD COUNT 8.2 10^3/uL (4.3-11.0)
[2020-10-22 05:44] LABS: ALBUMIN 3.2 GM/DL (3.2-4.5); CHLORIDE 106 MMOL/L (98-107); POTASSIUM 3.6 MMOL/L (3.6-5.0); SODIUM 138 MMOL/L (135-145)
[2020-10-22 05:47] LABS: GLUCOSE 111 MG/DL (70-105); TOTAL PROTEIN 5.7 GM/DL (6.4-8.2)
[2020-10-22 05:48] LABS: CARBON DIOXIDE 22 MMOL/L (21-32)
[2020-10-22 05:49] LABS: BILIRUBIN,TOTAL 0.5 MG/DL (0.1-1.0)
[2020-10-22 05:50] LABS: ALKALINE PHOSPHATASE 63 U/L (40-136); CREATININE SERUM 0.92 MG/DL (0.60-1.30); GFR ESTIMATED > 60
[2020-10-22 05:51] LABS: BUN/CREATININE RATIO 11
[2020-10-22 05:53] LABS: ALANINE AMINOTRANSFERASE 42 U/L (0-55)
[2020-10-22 08:00] VITALS: BP 129/77
[2020-10-22] MEDS: cefTRIAXone FOR IV USE 1,000 MG in WATER (STERILE) FOR INJECTION 10 ML IV SCH (08:09)
[2020-10-22] MEDS: PIPERACILLIN/TAZOBACTAM (BULK) 4.5 GM in NS (IVPB) 100 ML IV SCH (08:10)
[2020-10-22] MEDS: PANTOPRAZOLE 40 MG (PROTONIX) VIAL IV SCH (08:10)
[2020-10-22] MEDS ORDERED: FAMOTIDINE 20 MG (PEPCID) TABLET PO SCH (09:00)
[2020-10-22] MEDS ORDERED: eZETimibe 10 MG (ZETIA) TABLET PO SCH (09:00)
[2020-10-22] MEDS ORDERED: ASPIRIN E.C. 81 MG (ECOTRIN) TAB PO SCH (09:00)
[2020-10-22] MEDS ORDERED: AMOX-358 PO (10:35)
[2020-10-22] MEDS ORDERED: METR500T PO (10:35)
[2020-10-22] MEDS ORDERED: TRM50T PO (10:35)
--- NOTE | 2020-10-22 10:59 | Discharge Summary ---
BETTINA GLORIA MED STUDENT 10/22/20 1059: Diagnosis/Chief Complaint Date of Admission Oct 19, 2020 at 23:00 Date of Discharge Oct 22, 2020 Discharge Date: Oct 22, 2020 Admission Diagnosis 1. Acute diverticulitis with perforation responding to conservative management continue IV fluids clear liquid diet and antibiotics no evidence for sepsis this morning. Primary Care Robbi Bernard MD Discharge Summary Discharge Physical Exam Allergies: Coded Allergies: prochlorperazine (Verified Allergy, Unknown, Psychosis, 10/19/20) Vitals & I&Os Vital Signs Date Time Temp Pulse Resp B/P (MAP) Pulse Ox O2 Delivery O2 Flow Rate FiO2 10/22/20 08:00 96 Room Air 10/22/20 08:00 36.4 73 20 129/77 (94) General Appearance: No Apparent Distress, WD/WN HEENT: PERRL/EOMI, Moist Mucous Membranes Respiratory: Chest Non Tender, Lungs Clear, Normal Breath Sounds, No Accessory Muscle Use, No Respiratory Distress Cardiovascular: Regular Rate, Rhythm, No Edema, No Gallop, No Murmur Gastrointestinal: Normal Bowel Sounds, Soft, Tenderness (LLQ ) Extremity: Normal Inspection, Normal Range of Motion, Non Tender, No Calf Tenderness, No Pedal Edema Skin: Normal Color, Warm/Dry Neurologic/Psychiatric: Alert, Oriented x3, No Motor/Sensory Deficits, Normal Mood/Affect Hospital Course 10/19 * Presents to ED with CC of LLQ pain and blood in stool that has been occurring off and on for about a year (pt attributes to hemorrhoids) * Hx of diverticulitis approximately 10 years ago * Dr. Saez recommended bowel rest, IV hydration, pain management, and abx * WBC at 24 * CT indicates diverticulitis with contained micro-perforation 10/20 * WBC trending downward at 14.3 * Maintained on a clear liquid diet * Conservative management continued 10/21 * Pt continuing to improve * Pain significantly decreased compared to time of admission * WBC continuing to trend downward at 10.6 * PT/OT initiated 10/22 * Pt doing well this morning, up and out of bed * Diet advanced * Pt expresses desire to be discharged * Dr. Saez has cleared pt to be discharged * Pt will follow up with Dr. Daugherty who he is already established with * Pt deemed medically stable and well to be discharged home * Prescriptions sent to [facility] in [place] as requested by pt Labs (last 24 hrs) Laboratory Tests 10/22/20 05:18: White Blood Count 8.2, Red Blood Count 3.93L, Hemoglobin 11.4L, Hematocrit 34L, Mean Corpuscular Volume 86, Mean Corpuscular Hemoglobin 29, Mean Corpuscular Hemoglobin Concent 34, Red Cell Distribution Width 12.7, Platelet Count 217, Mean Platelet Volume 9.6, Immature Granulocyte % (Auto) 0, Neutrophils (%) (Auto) 80H, Lymphocytes (%) (Auto) 11L, Monocytes (%) (Auto) 6, Eosinophils (%) (Auto) 3, Basophils (%) (Auto) 0, Neutrophils # (Auto) 6.6, Lymphocytes # (Auto) 0.9L, Monocytes # (Auto) 0.5, Eosinophils # (Auto) 0.3, Basophils # (Auto) 0.0, Immature Granulocyte # (Auto) 0.0, Sodium Level 138, Potassium Level 3.6, Chlo ride Level 106, Carbon Dioxide Level 22, Anion Gap 10, Blood Urea Nitrogen 10, Creatinine 0.92, Estimat Glomerular Filtration Rate > 60, BUN/Creatinine Ratio 11, Glucose Level 111H, Calcium Level 8.0L, Corrected Calcium 8.6, Total Bilirubin 0.5, Aspartate Amino Transf (AST/SGOT) 16, Alanine Aminotransferase (ALT/SGPT) 42, Alkaline Phosphatase 63, Total Protein 5.7L, Albumin 3.2 Microbiology 10/19/20 Urine Culture - Final, Complete NO GROWTH 10/19/20 Blood Culture - Preliminary, Resulted No growth Patient resulted labs reviewed. Pending Labs Laboratory Tests 10/22/20 05:18: White Blood Count 8.2, Red Blood Count 3.93, Hemoglobin 11.4, Hematocrit 34, Mean Corpuscular Volume 86, Mean Corpuscular Hemoglobin 29, Mean Corpuscular Hemoglobin Concent 34, Red Cell Distribution Width 12.7, Platelet Count 217, Mean Platelet Volume 9.6, Immature Granulocyte % (Auto) 0, Neutrophils (%) (Auto) 80, Lymphocytes (%) (Auto) 11, Monocytes (%) (Auto) 6, Eosinophils (%) (Auto) 3, Basophils (%) (Auto) 0, Neutrophils # (Auto) 6.6, Lymphocytes # (Auto) 0.9, Monocytes # (Auto) 0.5, Eosinophils # (Auto) 0.3, Basophils # (Auto) 0.0, Immature Granulocyte # (Auto) 0.0, Sodium Level 138, Potassium Level 3.6, Chloride Level 106, Carbon Dioxide Level 22, Anion Gap 10, Blood Urea Nitrogen 10, Creatinine 0.92, Estimat Glomerular Filtration Rate > 60, BUN/Creatinine Ratio 11, Glucose Level 111, Calcium Level 8.0, Corrected Calcium 8.6, Total Bilirubin 0.5, Aspartate Amino Transf (AST/SGOT) 16, Alanine Aminotransferase (ALT/SGPT) 42, Alkaline Phosphatase 63, Total Protein 5.7, Albumin 3.2 Discharge Home Medications: Active Scripts Active Flagyl (Metronidazole) 500 Mg Tablet 500 Mg PO TID Augmentin 875-125 Tablet (Amoxicillin/Potassium Clav) 1 Each Tablet 1 Each PO BID Tramadol HCl 50 Mg Tablet 50 Mg PO Q6HR PRN Reported Losartan-Hctz 100-25 mg Tab (Losartan/Hydrochlorothiazide) 1 Each Tablet 1 Each PO DAILY Ezetimibe 10 Mg Tablet 10 Mg PO DAILY [employer] (FAMOTIDINE) (Famotidine) 20 Mg Tablet 20 Mg PO DAILY Aspirin EC (Aspirin) 81 Mg Tablet. 81 Mg PO DAILY Instructions to patient/family Please see electronic discharge instructions given to patient. BAILEY CUEVAS 10/23/20 0550: Diagnosis/Chief Complaint Discharge Diagnosis (1) Sepsis Status: Acute (2) Diverticulitis of intestine Status: Acute Discharge Summary Discharge Physical Exam Allergies: Coded Allergies: prochlorperazine (Verified Allergy, Unknown, Psychosis, 10/19/20) General Appearance: No Apparent Distress, WD/WN, Chronically ill Respiratory: Lungs Clear Cardiovascular: Regular Rate, Rhythm Neurologic/Psychiatric: Alert, Oriented x3, No Motor/Sensory Deficits, Normal Mood/Affect Hospital Course Was the Problem List Reviewed?: Yes Hospital course: Pt had an uneventful hospital course for acute diverticulitis and contained perforation. He was placed on IV antibiotics, Dr. Saez was consulted, managed the patient conservatively and overall he did very well. He did very well with Ultram for pain. IV antibiotics were transitioned to oral antibiotics of Augmentin and Flagyl. He will follow up with Dr. Daugherty for repeat colonoscopy and may ultimately require resection depending on the severity of the diverticulosis. Pt was DC in improved condition. Discussion & Recommendations Discharge Planning: <30 minutes discharge planning Supervisory-Addendum Brief Verification & Attestation Participated in pt care: history, MDM, physical Personally performed: exam, history, MDM, supervision of care Care discussed with: Medical Student Procedures: n/a Results interpretation: Verified all documentation Verification and Attestation of Medical Student E/M Service A medical student performed and documented this service in my presence. I reviewed and verified all information documented by the medical student and made modifications to such information, when appropriate. I personally performed the physical exam and medical decision making. Bailey Cuevas, Oct 23, 2020,05:51 Problem Qualifiers (1) Sepsis: Sepsis type: sepsis due to unspecified organism Sepsis acute organ dysfunction status: without acute organ dysfunction Qualified Codes: A41.9 - Sepsis, unspecified organism (2) Diverticulitis of intestine: Diverticulitis site: large intestine Diverticulitis bleeding: without bleeding Diverticulitis complication: unspecified complication status Qualified Codes: K57.32 - Diverticulitis of large intestine without perforation or abscess without bleeding BETTINA GLORIA MED STUDENT Oct 22, 2020 10:59 BAILEY CUEVAS DO Oct 23, 2020 05:50
[2020-10-22 11:30] VITALS: BP 129/77
--- NOTE | 2020-10-24 01:20 | Physician Query Clarification ---
PQ-Uncertain Diagnosis Admission/Discharge Admission Date: Oct 19, 2020 at 23:00 Discharge Date: Oct 22, 2020 at 11:50 CHRISTY Delgado MD The medical record reflects the following clinical scenario: History/Risk Factors: 70 y/o male patient presents with Acute diverticulitis with perforation responding to conservative management, sepsis was documented only in discharge summary. Hand P, 10/20: Acute diverticulitis with perforation responding to conservative management continue IV fluids clear liquid diet and antibiotics no evidence for sepsis this morning Discharge summary, 10/22: Pt had an uneventful hospital course for acute diver ticulitis and contained perforation. He was placed on IV antibiotics,managed the patient conservatively and overall he did very well with Ultram for pain. IV antibiotics were transitioned to oral antibiotics of Augmentin and Flagyl. Clinical Findings: WBC-24.0, pulse-120 Treatment: IV antibiotics Question: Is Sepsis a clinically valid diagnosis? Sepsis was documented in the discharge summary, 10/22 with no further documentation in the medical record. Please document a response in Progress Note or Discharge Summary. 1. Yes, clinically valid, condition resolved. 2. No, condition ruled out. 3. Other, with explanation of clinical findings. 4. Undetermined, no explanation for clinical findings. PHYSICIAN RESPONSE Diagnosis clinically valid: Yes, Conditon resolved Please remember a lack of response to the above will prompt a phone page by CDI/Coding staff. In responding to this query, please exercise your independent professional judgment. The purpose of this communication is to more accurately reflect the complexity of your patients condition. The fact that a question is asked does not imply that any particular answer is desired or expected. Thank you for your timely response to this clarification. Requestors name: [ ] Phone # [ ] THIS PHYSICIAN QUERY FORM IS A PERMANENT PART OF THE MEDICAL RECORD ANGELO GOODE Oct 24, 2020 01:20 CHRISTY MENSAH MD Oct 25, 2020 12:02
--- NOTE | 2020-10-28 00:41 | Physician Query Clarification ---
PQ-Link Manifestation-Etiology Admission/Discharge Admission Date: Oct 19, 2020 at 23:00 Discharge Date: Oct 22, 2020 at 11:50 CHRISTY Delgado MD The medical record reflects the following clinical scenario: History/Risk Factors: 70 y/o male patient presents with Acute diverticulitis with perforation responding to conservative management. Hand P, 10/20: Acute diverticulitis with perforation responding to conservative management continue IV fluids clear liquid diet and antibiotics no evidence for sepsis this morning Discharge summary, 10/22: Sepsis,acute diverticulitis and contained perforation. He was placed on IV antibiotics,managed the patient conservatively and overall he did very well with Ultram for pain. IV antibiotics were transitioned to oral antibiotics of Augmentin and Flagyl. Clinical Findings: WBC-24.0, pulse-120 Treatment: IV antibiotics Question: Can you specify if the Sepsis is due to/associated with acute diverticulitis with perforation? Please document a response in the Progress Note o\isr Discharge Summary. 1. Yes - Sepsis is due to/associated with acute diverticulitis with perforation. 2. No - Sepsis is not due to/associated with acute diverticulitis with perforation. 3. Other, with explanation of the clinical findings. 4. Clinically undetermined, no explanation for the clinical findings. PHYSICIAN RESPONSE Manifestation due to/assoic: Yes Please remember a lack of response to the above will prompt a phone page by CDI/Coding staff. In responding to this query, please exercise your independent professional judgment. The purpose of this communication is to more accurately reflect the complexity of your patients condition. The fact that a question is asked does not imply that any particular answer is desired or expected. Thank you for your timely response to this clarification. Requestors name: [ ] Phone # [ ] THIS PHYSICIAN QUERY FORM IS A PERMANENT PART OF THE MEDICAL RECORD ANGELO GOODE Oct 28, 2020 00:41 CHRISTY MENSAH MD Oct 29, 2020 09:27
== END 2020-10-22 11:50 | disposition home or self-care (01) | DRG 872 ==
LOC: ER FS 19:14 → 4TH 23:00
PROVIDERS: ADMIT Internal Medicine; ATTEND Internal Medicine
DX: A41.9 Sepsis, unspecified organism (principal); K57.20 Diverticulitis of large intestine with perforation and abscess without bleeding; I10 Essential (primary) hypertension; K57.90 Diverticulosis of intestine, part unspecified, without perforation or abscess without bleeding
CPT/HCPCS: 36415; 71045; 74177; 80053; 81000; 83605; 85007; 85025; 85027; 85610; 85730; 87040; 87088; 96374; 96375; 96376

== ENCOUNTER 2021-05-01 09:28 | Day surgery (SDC) | payer MEDICARE, OTHER ==
[2021-05-01] VITALS (12 sets, daily range): BP systolic 132–152; BP diastolic 80–92
[~2021-05-01] VITALS: Ht 165.1 cm; Wt 77.1 kg
[~2021-05-01 09:28] MED LIST changes: +AMOX-358 PO; +ASPI-1238 PO; +EZET10TA49 PO; +FAMO20TA3 PO; +LOSA1TAB23 PO; +METF-397 PO; +METR500T PO; +MULT-1136 PO; -PIPERACILLIN/TAZOBACTAM (BULK) 4.5 GM in NS (IVPB) 100 ML IV SCH; +TRM50T PO
--- OUTSIDE RECORDS SUMMARY | 2021-05-01 09:31 | XMS REPORT | Clinical Summary ---
Author Author [facility] Organization [facility] Address Unknown Phone Unavailable Care Team Providers Care Database Engineer Name Role Phone Rico Back MD Unavailable Self, Referral PCP Unavailable Source Comments Some departments are not documenting in the electronic medical record. If you d o not see the information that you expected, contact Release of Information in [facility] [place] Information Management department at [phone] for further assistan ce in locating additional records.[facility] Allergies Comments Active Allergy Reactions Severity Noted Date Prochlorperazine MENTAL STATUS 10/24/2012 Edisylate CHANGES Promethazine MENTAL STATUS 10/24/2012 CHANGES Metoclopramide Hcl MENTAL STATUS 10/24/2012 CHANGES Medications End Date Status Medication Sig Dispensed Refills Start Date Active olmesartan(+) (BENICAR) Take 40 mg by 0 40 mg tablet mouth daily. Active aspirin EC 81 mg tablet Take 81 mg by 0 mouth daily. Active Fenofibric Acid Take 135 mg 0 (TRILIPIX) 135 mg CpDR by mouth daily. Active sildenafil(+) (VIAGRA) 50 Take 100 mg 0 mg tablet by mouth as Needed. Active ALPROSTADIL (EDEX IC) Inject into 0 base of penis as directed. Active Problems Problem Noted Date Erectile dysfunction 10/24/2012 Overview: Formatting of this note might be differ ent from the original. -unclear etiology, likely vascular with history of hypertension and claudication -refractory to Viagra -not amenable to vacuum erection device -currently using alprostadil (edex) inj ections with adequate results -interested in pursuing penile prosthes is L ast Assessment & Plan: Formatting of this note might be differ ent from the original. -reviewed in detail risks of penile pro sthesis including infection, erosion, malfunction, perceived penile shortening, need for replacement and bleeding -after extensive discussion with patien t regarding operative risks vs benefits from procedure recommended he continue to use alprostadil injections as he has been achieving sat isfactory results with this more conservative and less invasive therapy -instructed to return to clinic as need ed or call if further questions/concerns should develop in fu ture Prostate nodule 10/24/2012 Overview: Formatting of this note might be differ ent from the original. -right base nodule on digital rectal ex amination -patient reports PSA of 1.1 in 2010 -prior prostate biopsy with Dr. Carola sims reportedly negative pathology L ast Assessment & Plan: Formatting of this note might be differ ent from the original. -repeat PSA today -follow-up with Dr. Zarco for possible future prostate biospy Surgical History Surgery Date Site/Laterality Comments HX APPENDECTOMY HERNIA REPAIR SECTION Medical History Medical History Date Comments Erectile dysfunction Hypertension Family History Medical History Relation Name Comments Cancer Father Cancer Mother Relation Name Status Comments Father Mother Social History Date Tobacco Use Types Packs/Day Years Used Former Smoker Comments Alcohol Use Standard Drinks/Week Yes 0 (1 standard drink = 0.6 o z pure alcohol) Sex Assigned at Date Recorded Not on file Last Filed Vital Signs Reading Time Taken Comments Vital Sign 140/80 10/24/2012 1:10 PM CDT Blood Pressure 74 10/24/2012 1:10 PM CDT Pulse - - Temperature 16 10/24/2012 1:10 PM CDT Respiratory Rate - - Oxygen Saturation - - Inhaled Oxygen Concentration 79.1 kg (174 lb 6.4 oz) 10/24/2012 1:10 PM CDT Weight 165.1 cm (5' 5") 10/24/2012 1:10 PM CDT Height 29.02 10/24/2012 1:10 PM CDT Body Mass Index Plan of Treatment Health Maintenance Due Date Last Done Comments DTAP/TDAP VACCINES (1 - 1970 Tdap) HEPATITIS C SCREENING 1970 PHYSICAL (COMPREHENSIVE) 1970 EXAM COLORECTAL CANCER 2002 SCREENING SHINGLES RECOMBINANT 2002 VACCINE (1 of 2) ABDOMINAL AORTIC ANEURYSM 2017 SCREENING PNEUMONIA (PPSV23) 2017 VACCINE (1 of 1 - PPSV23) INFLUENZA VACCINE 03/02/2021 Results Not on filefrom Last 3 Months
[2021-05-01] MEDS ORDERED: ONDANSETRON 4 MG/2 ML (SDV) Z0FRAN IVP PRN (09:45)
[2021-05-01] MEDS ORDERED: morphine INJ 10 MG/ML 1ML (SYR OR VIAL) IVP PRN (09:45)
[2021-05-01] MEDS ORDERED: HYDROcodone/APAP 5 MG/325 MG (LORTAB) TAB PO ONE (09:45)
[2021-05-01] MEDS ORDERED: HYDR-3817 PO (09:45)
[2021-05-01] MEDS ORDERED: ACETAMINOPHEN 325 MG TABLET PO PRN (09:45)
--- NOTE | 2021-05-01 09:46 | Discharge Inst-Surgical ---
D/C Lap Instructions-KIDO Reconcile Patient Problems Problems Reviewed?: Yes New, Converted, or Re-Newed RX: RX on Chart Follow Up Appt in 2 weeks Activity as tolerated No driving for 24 hours No driving while on pain medications Incentive Spirometry use every 2 hours while awake Regular Diet Symptoms to Report: Fever over 101 degree F, Nausea/Vomiting Infection Signs and Symptoms to report: Increased redness, Foul odor of wound, Increased drainage Bathing instructions: May shower Operative Area Clean/Dry; Keep incision clean/dry If any problems/questions: Contact your physician or go to Emergency Room AIME GONZALEZ APRN May 01, 2021 09:46
--- NOTE | 2021-05-01 09:47 | Progress Note-Pre Operative ---
Pre-Operative Progress Note H&P Reviewed The H&P was reviewed, patient examined and no changes noted. Date Seen by Provider: May 01, 2021 Time Seen by Provider: 09:45 Date H&P Reviewed: May 01, 2021 Time H&P Reviewed: 09:40 Pre-Operative Diagnosis: Chronic calculous cholecystitis AIME GONZALEZ APRN May 01, 2021 09:47
[2021-05-01] MEDS ORDERED: LIDOCAINE/EPI 1%-1:200,000 (XYLOCAINE) 30 ML VIAL ONE (09:50)
[2021-05-01] MEDS ORDERED: SEVOFLURANE (ULTANE) 15 ML INHAL SOLN ONE ×3 (09:59→12:41)
[2021-05-01] MEDS ORDERED: ROCURONIUM 10 MG/ML 5 ML SYRINGE IV ONE (09:59)
[2021-05-01] MEDS ORDERED: LIDOCAINE PF 2% 5 ML (XYLOCAINE) VIAL ONE (09:59)
[2021-05-01] MEDS ORDERED: ONDANSETRON 4 MG/2 ML (SDV) Z0FRAN ONE ×2 (09:59→13:06)
[2021-05-01] MEDS ORDERED: proPOfol 200 MG/20 ML (DIPRIVAN) VIAL IV ONE (09:59)
[2021-05-01] MEDS ORDERED: MIDAZOLAM 2 MG/2 ML (VERSED) VIAL ONE (10:00)
[2021-05-01] MEDS ORDERED: ceFAZolin 2 GM IV Premixed 50 ML IV ONE (10:00)
[2021-05-01] MEDS ORDERED: fentaNYL INJ 100 MCG/2 ML AMP ONE ×2 (10:00→13:19)
[2021-05-01] MEDS: LACTATED RINGERS 1,000 ML IV PRN ×2 (10:23→12:15)
[2021-05-01] MEDS ORDERED: morphine INJ 10 MG/ML 1ML (SYR OR VIAL) ONE (12:24)
--- NOTE | 2021-05-01 12:38 | Progress Note-Post Operative ---
Post-Operative Progess Note Surgeon (s)/Change House Attendant (s) Surgeon HALIMA PRIEST MD Change House Attendant: brian santana PULP BLEACHER Pre-Operative Diagnosis Chronic calculous cholecystitis Post-Operative Diagnosis same Procedure & Operative Findings Date of Procedure 05/01/21 Procedure Performed/Findings laparoscopic cholecystectomy Anesthesia Type get Estimated Blood Loss Estimated blood loss (mL): minimal Specimens/Packing Specimens Removed gallbladder HALIMA PRIEST MD May 01, 2021 12:38
[2021-05-01] MEDS: ONDANSETRON 4 MG/2 ML (SDV) Z0FRAN IVP PRN ×2 (13:09→13:41)
--- NOTE | 2021-05-01 13:12 | Anesthesia-General Post-Op ---
General Patient Condition Mental Status/LOC: Same as Preop Cardiovascular: Satisfactory Nausea/Vomiting: Absent Respiratory: Satisfactory Pain: Controlled Complications: Absent Post Op Complications Complications None Follow Up Care/Instructions Patient Instructions None needed. Anesthesia/Patient Condition Patient Condition Patient is doing well, no complaints, stable vital signs, no apparent adverse anesthesia problems. No complications reported per nursing. ALECIA MENDOZA CRNA May 01, 2021 13:12
[2021-05-01] MEDS ORDERED: morphine INJ 10 MG/ML 1ML (SYR OR VIAL) IVP ONE (13:15)
[2021-05-01] MEDS ORDERED: fentaNYL INJ 100 MCG/2 ML AMP IVP ONE (13:15)
[2021-05-01] MEDS ORDERED: MEPERIDINE (DEMEROL) INJ 50 MG/ML IVP ONE (13:15)
[2021-05-01] MEDS ORDERED: HYDROcodone/APAP 5 MG/325 MG (LORTAB) TAB ONE (14:26)
--- NOTE | 2021-05-01 15:44 | OPERATIVE REPORT ---
DATE OF SERVICE: 05/01/2021 ATTENDING PRIMARY CARE PHYSICIAN: Dr. Bernard. PREOPERATIVE DIAGNOSIS: Chronic calculous cholecystitis. POSTOPERATIVE DIAGNOSIS: Chronic calculous cholecystitis. PROCEDURE: Laparoscopic cholecystectomy. SURGEON: Halima Priest MD. PERFORMANCE MAKEUP ARTIST: Rolo Yeung APRN. ANESTHESIA: General endotracheal. ESTIMATED BLOOD LOSS: Minimal. FINDINGS: Distended gallbladder with gallbladder wall inflammation as well as large gallstone. DISPOSITION: The patient tolerated the procedure well. INDICATIONS: The patient is a 70-year-old male who has known that he has had gallstones on previous CT scans; however, he states that this was asymptomatic. Approximately 3 weeks ago, pain with associated nausea and vomiting after eating a meal. An ultrasound was performed, which again did show gallstones as well as gallbladder wall thickening. DESCRIPTION OF PROCEDURE: The patient was brought to the operating room, laid supine on the table. After adequate IV pain and sedative medications and general endotracheal intubation, the abdomen was prepped and draped in the standard surgical fashion. A 0.5% Marcaine with epinephrine was then used to anesthetize the overlying skin in the left upper abdominal quadrant and a transverse skin incision made using a 15 blade. An 0 silk suture was applied to the medial aspect of the incision for retraction and Veress needle inserted with a low opening pressure of 0 mmHg. The abdomen was then insufflated to 15 mmHg pressure. The Veress needle removed, and a 5 mm XL trocar placed followed by a 5 mm 45-degree angle laparoscope visualizing the peritoneal cavity. A 4-quadrant abdominal exploration was performed. There was a distended gallbladder with gallbladder wall thickening. Under direct visualization, we then proceeded to place a supraumbilical 10 mm port after the skin and peritoneal lining were anesthetized using 0.5% Marcaine with epinephrine and transverse skin incision made using a 15 blade. In a similar manner, a right upper abdominal quadrant 5 mm port was placed. The gallbladder was then decompressed using aspiration needle and suction tubing. The patient was then placed in a reverse Trendelenburg position as well as plane right side up, left side down. The fundus of the gallbladder was then retracted anteriorly and superiorly. The hepatoduodenal ligament was then opened using blunt dissection as well as electrocautery using the hook instrument as well as a [place] dissector. The entire critical view of safety was identified including the triangle of Calot as well as the cystic duct and artery as only two structures going to the gallbladder as well as the cystic plate behind the proximal gallbladder. A timeout was then taken, and the cystic duct and artery were then clipped proximally and distally and cut with EndoShears. The gallbladder was then dissected off the liver bed using electrocautery with visualization of good hemostasis as well as no leaking ducts of Luschka. The gallbladder was removed through the 10 mm port site using an EndoCatch bag. The 10 mm port site fascia and peritoneum were then closed under direct visualization using a Shukri-Ezra device and 0 Vicryl suture. The abdomen was desufflated and remaining ports removed. All skin incisions were closed using 4-0 Monocryl running subcuticular sutures. Wounds were then cleaned and covered with Dermabond. The patient tolerated the procedure well. We will start IV normal pain medication as well as a clear liquid diet. Once he is tolerating clears, has good pain control with oral pain medications, ambulating well, we will just discharge him home. He will be instructed to do no heavy lifting or exertion for the next two weeks. Job ID: [id number] DocumentID: [id number] Dictated Date: 05/01/2021 12:45:01 Credit Collections Clerk Date: 05/01/2021 15:43:43 Dictated By: HALIMA PRIEST MD
== END 2021-05-01 14:55 | disposition home or self-care (01) ==
LOC: SDC 09:28
PROVIDERS: ATTEND Surgery
DX: K80.10 Calculus of gallbladder with chronic cholecystitis without obstruction (principal); Z79.899 Other long term (current) drug therapy; Z79.82 Long term (current) use of aspirin; Z87.891 Personal history of nicotine dependence; Z88.8 Allergy status to other drugs, medicaments and biological substances; Z11.2 Encounter for screening for other bacterial diseases
CPT/HCPCS: 87081

== ENCOUNTER 2021-06-26 22:01 | Emergency (ER) | payer MEDICARE, OTHER ==
[~2021-06-26] VITALS: Ht 165.1 cm; Wt 73.4 kg
[~2021-06-26 22:01] MED LIST changes: +HYDR-3817 PO
--- NOTE | 2021-06-26 22:06 | ED General ---
General Stated Complaint: SYNCOPE History of Present Illness Date Seen by Provider: Jun 26, 2021 Time Seen by Provider: 22:06 Initial Comments 70-year-old male presents following a brief syncope event. Patient reports that he was getting his neck had a shaved. That he had an event where he became lightheaded nausea and significant out very briefly. He denies any chest pain prior to the event, he denies headache, recent illness. Patient currently not having symptoms. Allergies and Home Medications Allergies Coded Allergies: prochlorperazine (Verified Allergy, Unknown, Psychosis, 10/19/20) Patient Home Medication List Home Medication List Reviewed: Yes Aspirin (Aspirin EC) 81 Mg Tablet.dr, 81 MG PO DAILY, (Reported) Entered as Reported by: MORALES MANN on 10/21/20 1005 Ezetimibe (Ezetimibe) 10 Mg Tablet, 10 MG PO DAILY, (Reported) Entered as Reported by: MORALES MANN on 10/21/20 1005 Famotidine (Acid Airline Reservation Agent (FAMOTIDINE)) 20 Mg Tablet, 20 MG PO DAILY, (Reported) Entered as Reported by: MORALES MANN on 10/21/20 1005 Hydrocodone/Acetaminophen (Hydrocodone-Acetamin 7.5-325) 1 Each Tablet, 1 EACH PO Q4H PRN for PAIN-BREAKTHROUGH Prescribed by: AIME GONZALEZ on 05/01/21 0945 Losartan/Hydrochlorothiazide (Losartan-Hctz 100-25 mg Tab) 1 Each Tablet, 1 EACH PO DAILY, (Reported) Entered as Reported by: MORALES MANN on 10/21/20 1005 Metformin HCl (Metformin HCl) 500 Mg Tablet, 500 MG PO DAILY, (Reported) Entered as Reported by: CARTER OCAMPO on 04/29/21 1116 Multivitamin (Multivitamin) 1 Each Tablet, 1 EACH PO DAILY, (Reported) Entered as Reported by: CARTER OCAMPO on 04/29/21 1116 Review of Systems Review of Systems Constitutional: No chills, No fever Respiratory: no symptoms reported Cardiovascular: see HPI, syncope Gastrointestinal: No abdominal pain; nausea; No vomiting Genitourinary: no symptoms reported Musculoskeletal: no symptoms reported Skin: no symptoms reported Psychiatric/Neurological: See HPI Past Wvnoaxt-Bhchbw-Jlffhs Hx Immunizations Up To Date First/Initial COVID19 Vaccinat: 02/01/21 MODERNA Second COVID19 Vaccination Jabari: 09/30/20 Third COVID19 Vaccination Date: 09/02/20 Seasonal Allergies Seasonal Allergies: No Past Medical History Surgeries: Yes (HERNIA X 2, TRACH 1954) Abdominal, Appendectomy Respiratory: No Currently Using CPAP: No Currently Using BIPAP: No Cardiac: No Neurological: No Genitourinary: No Gastrointestinal: Yes Diverticulosis, Gall Bladder Disease Musculoskeletal: No Endocrine: No HEENT: No Cancer: No Psychosocial: No Integumentary: No Blood Disorders: No Physical Exam Vital Signs Vital Signs - First Documented 06/26/21 22:05 Temp 36.0 Pulse 88 Resp 18 B/P (MAP) 149/72 (97) Pulse Ox 98 O2 Delivery Room Air Capillary Refill : Height, Weight, BMI Height: '" Weight: lbs. oz. kg; 28.28 BMI Method: General Appearance: No Apparent Distress Eyes: Bilateral Eye Normal Inspection HEENT: Moist Mucous Membranes Neck: Non Tender, Supple Respiratory: Lungs Clear, Normal Breath Sounds, No Accessory Muscle Use Cardiovascular: Regular Rate, Rhythm, No Edema Gastrointestinal: Non Tender, Soft Extremity: Normal Inspection, Normal Range of Motion Neurologic/Psychiatric: Alert, Oriented x3, Normal Mood/Affect Skin: Normal Color, Warm/Dry Progress/Results/Core Measures Suspected Sepsis SIRS Temperature: Pulse: Respiratory Rate: Laboratory Tests 06/26/21 22:02: White Blood Count 8.7 Blood Pressure / Mean: Laboratory Tests 06/26/21 22:02: Creatinine 1.02, Platelet Count 340, Total Bilirubin 0.4 Results/Orders Lab Results Laboratory Tests Test 06/26/21 22:02 Range/Units White Blood Count 8.7 4.3-11.0 10^3/uL Red Blood Count 4.80 4.30-5.52 10^6/uL Hemoglobin 13.8 13.3-17.7 g/dL Hematocrit 40 40-54 % Mean Corpuscular Volume 84 80-99 fL Mean Corpuscular Hemoglobin 29 25-34 pg Mean Corpuscular Hemoglobin Concent 34 32-36 g/dL Red Cell Distribution Width 12.9 10.0-14.5 % Platelet Count 340 130-400 10^3/uL Mean Platelet Volume 9.1 9.0-12.2 fL Neutrophils (%) (Auto) 52 42-75 % Lymphocytes (%) (Auto) 38 12-44 % Monocytes (%) (Auto) 5 0-12 % Eosinophils (%) (Auto) 4 0-10 % Basophils (%) (Auto) 0 0-10 % Neutrophils # (Auto) 4.5 1.8-7.8 X 10^3 Lymphocytes # (Auto) 3.3 1.0-4.0 X 10^3 Monocytes # (Auto) 0.5 0.0-1.0 X 10^3 Eosinophils # (Auto) 0.4 H 0.0-0.3 10^3/uL Basophils # (Auto) 0.0 0.0-0.1 10^3/uL Sodium Level 137 135-145 MMOL/L Potassium Level 3.6 3.6-5.0 MMOL/L Chloride Level 99 98-107 MMOL/L Carbon Dioxide Level 27 21-32 MMOL/L Anion Gap 11 5-14 MMOL/L Blood Urea Nitrogen 16 7-18 MG/DL Creatinine 1.02 0.60-1.30 MG/DL Estimat Glomerular Filtration Rate 73 BUN/Creatinine Ratio 16 Glucose Level 172 H 70-105 MG/DL Calcium Level 9.5 8.5-10.1 MG/DL Corrected Calcium 9.3 8.5-10.1 MG/DL Magnesium Level 1.9 1.6-2.4 MG/DL Total Bilirubin 0.4 0.1-1.0 MG/DL Aspartate Amino Transf (AST/SGOT) 27 5-34 U/L Alanine Aminotransferase (ALT/SGPT) 44 0-55 U/L Alkaline Phosphatase 94 40-136 U/L Troponin I < 0.30 <0.30 NG/ML Total Protein 7.4 6.4-8.2 GM/DL Albumin 4.3 3.2-4.5 GM/DL My Orders Orders - GANDARA,JOEL L DO Cbc With Automated Diff (06/26/21 22:) Comprehensive Metabolic Panel (06/26/21 22:) Magnesium (06/26/21 22:) Ua Culture If Indicated (06/26/21:) Troponin I Fs (06/26/21 22:) Ekg Tracing (06/26/21 22:) Monitor-Rhythm Ecg Trace Only (06/26/21 22:06) Chest 1 View Ap/Pa Only (06/26/21 22:06) Vital Signs/I&O 06/26/21 06/26/21 06/26/21 22:05 22:43 23:03 Temp 36.0 36.0 36.0 Pulse 88 77 79 Resp 18 14 17 B/P (MAP) 149/72 (97) 121/69 138/72 Pulse Ox 98 97 97 O2 Delivery Room Air Room Air Room Air Capillary Refill : Progress Note : Progress Note Patient with normal EKG, chest x-ray, labs including troponin. I suspect a carotid sinus/vagal response is most likely the cause of his syncope episode. I did discuss with him since he was having his posterior neck shaved with pressure the time it happened that if it recurs with looking upwards or with the posterior neck pressure he should have his basilar arteries checked for patency. Patient has an appointment in July with his primary care provider. At that time he will discuss with him possible cardiology consult and if indicated we will obtain 1. Patient is otherwise stable and discharged ECG Initial ECG Impression Date: Jun 26, 2021 Initial ECG Impression Time: 22:03 Initial ECG Rate: 79 Initial ECG Rhythm: Normal Sinus Initial ECG Intervals: Normal Initial ECG Impression: Normal Comment normal Diagnostic Imaging Diagonstic Imaging: Xray Plain Films/CT/US/NM/MRI: chest Comments Date of Exam:06/26/21 CHEST 1 VIEW AP/PA ONLY HISTORY: Syncope. TECHNIQUE: Frontal view of the chest. COMPARISON: 10/19/2020. FINDINGS: Lung volumes are mildly large but stable since the prior study. There is no focal consolidation. There is no pleural effusion or pneumothorax. The cardiac silhouette is stable in size. There is marked right convex curvature of the thoracic spine which is unchanged since the prior exam. IMPRESSION: No acute pulmonary abnormality. Departure Impression Primary Impression: Syncope Qualified Codes: R55 - Syncope and collapse Disposition: 01 HOME, SELF-CARE Condition: Stable Departure-Patient Inst. Referrals: NACHO ARANA MD (PCP/Family) Primary Care Physician Patient Instructions: Syncope (Fainting) (DC) Add. Discharge Instructions: Please keep your follow-up with your primary care for further outpatient evaluation and consider cardiology consult with your next visit with them If syncope becomes more frequent or recurrent please follow-up with your primary care provider sooner for further evaluation Return to the ER as needed JOEL GANDARA DO Jun 26, 2021 22:06
[2021-06-26 22:20] LABS: BASOPHILS % (AUTO) 0 % (0-10); EOSINOPHILS % (AUTO) 4 % (0-10); HEMATOCRIT 40 % (40-54); HEMOGLOBIN 13.8 g/dL (13.3-17.7); LYMPHOCYTES % (AUTO) 38 % (12-44); MEAN CORPUSCULAR HEMOGLOBIN 29 pg (25-34); MEAN CORPUSCULAR HGB CONC 34 g/dL (32-36); MEAN CORPUSCULAR VOLUME 84 fL (80-99); MEAN PLATELET VOLUME 9.1 fL (9.0-12.2); MONOCYTES % (AUTO) 5 % (0-12); NEUTROPHILS % (AUTO) 52 % (42-75); PLATELET COUNT 340 10^3/uL (130-400); WHITE BLOOD COUNT 8.7 10^3/uL (4.3-11.0)
[2021-06-26 22:21] LABS: EOSINOPHILS # (AUTO) 0.4 10^3/uL (0.0-0.3); LYMPHOCYTES # (AUTO) 3.3 X 10^3 (1.0-4.0); MONOCYTES # (AUTO) 0.5 X 10^3 (0.0-1.0); NEUTROPHILS # (AUTO) 4.5 X 10^3 (1.8-7.8)
--- NOTE | 2021-06-26 22:22 | Diagnostic Imaging Report ---
HISTORY: Syncope. TECHNIQUE: Frontal view of the chest. COMPARISON: 10/19/2020. FINDINGS: Lung volumes are mildly large but stable since the prior study. There is no focal consolidation. There is no pleural effusion or pneumothorax. The cardiac silhouette is stable in size. There is marked right convex curvature of the thoracic spine which is unchanged since the prior exam. IMPRESSION: No acute pulmonary abnormality. Dictated by: Dictated on workstation # [id number]
[2021-06-26 22:38] LABS: ALANINE AMINOTRANSFERASE 44 U/L (0-55); ALBUMIN 4.3 GM/DL (3.2-4.5); ALKALINE PHOSPHATASE 94 U/L (40-136); BILIRUBIN,TOTAL 0.4 MG/DL (0.1-1.0); BUN/CREATININE RATIO 16; CALCIUM 9.5 MG/DL (8.5-10.1); CARBON DIOXIDE 27 MMOL/L (21-32); CHLORIDE 99 MMOL/L (98-107); CREATININE SERUM 1.02 MG/DL (0.60-1.30); GFR ESTIMATED 73; GLUCOSE 172 MG/DL (70-105); MAGNESIUM 1.9 MG/DL (1.6-2.4); POTASSIUM 3.6 MMOL/L (3.6-5.0); SODIUM 137 MMOL/L (135-145); TOTAL PROTEIN 7.4 GM/DL (6.4-8.2)
[2021-06-26 23:03] VITALS: BP 138/72
== END 2021-06-26 22:59 | disposition home or self-care (01) ==
LOC: EDUNIT# 22:01 → ER FS 22:02
DX: R55 Syncope and collapse (principal); Z79.82 Long term (current) use of aspirin
CPT/HCPCS: 36415; 71045; 80053; 83735; 84484; 85025; 93005; 93041

== ENCOUNTER 2022-05-15 18:27 | Emergency (ER) | payer MEDICARE, OTHER ==
[~2022-05-15] VITALS: Ht 167.7 cm; Wt 75.5 kg
[2022-05-15 18:32] VITALS: BP 190/93
[2022-05-15] MEDS ORDERED: morphine INJ 10 MG/ML 1ML (SYR OR VIAL) IVP STA (18:42)
--- NOTE | 2022-05-15 18:44 | ED GI ---
General Chief Complaint: Abdominal/GI Problems Stated Complaint: HERNIA Source of Information: Patient Exam Limitations: No Limitations History of Present Illness Date Seen by Provider: May 15, 2022 Time Seen by Provider: 18:30 Initial Comments 71-year-old male with past medical history of multiple hernia repairs coming in due to her hernia that he cannot get reduced. It is in his left groin, and it popped out roughly 6 days ago. Started hurting a couple days ago, the pain is moderate, throbbing, worse when he tries to push on it, better with rest. He had a bowel movement this morning and continues to pass flatus. No nausea or vomiting. Otherwise denying any fever, or any other concerns. Try taking hydrocodone at home to help with the pain which did help. He is otherwise denying any other acute complaints Allergies and Home Medications Allergies Coded Allergies: prochlorperazine (Verified Allergy, Unknown, Psychosis, 10/19/20) Patient Home Medication List Home Medication List Reviewed: Yes Aspirin (Aspirin EC) 81 Mg Tablet.dr, 81 MG PO DAILY, (Reported) Entered as Reported by: MORALES MANN on 10/21/20 1005 Ezetimibe (Ezetimibe) 10 Mg Tablet, 10 MG PO DAILY, (Reported) Entered as Reported by: MORALES MANN on 10/21/20 1005 Famotidine (Acid Ramp Flight Attendant (FAMOTIDINE)) 20 Mg Tablet, 20 MG PO DAILY, (Reported) Entered as Reported by: MORALES MANN on 10/21/20 1005 Hydrocodone/Acetaminophen (Hydrocodone-Acetamin 7.5-325) 1 Each Tablet, 1 EACH PO Q4H PRN for PAIN-BREAKTHROUGH Prescribed by: AIME GONZALEZ on 05/01/21 0945 Losartan/Hydrochlorothiazide (Losartan-Hctz 100-25 mg Tab) 1 Each Tablet, 1 EACH PO DAILY, (Reported) Entered as Reported by: MORALES MANN on 10/21/20 1005 Metformin HCl (Metformin HCl) 500 Mg Tablet, 500 MG PO DAILY, (Reported) Entered as Reported by: CARTER OCAMPO on 04/29/21 1116 Multivitamin (Multivitamin) 1 Each Tablet, 1 EACH PO DAILY, (Reported) Entered as Reported by: CARTER OCAMPO on 04/29/21 1116 Review of Systems Review of Systems Constitutional: No fever EENTM: No Symptoms Reported Respiratory: No Symptoms Reported Cardiovascular: No Symptoms Reported Gastrointestinal: See HPI Genitourinary: No Symptoms Reported Musculoskeletal: no symptoms reported Skin: no symptoms reported Psychiatric/Neurological: No Symptoms Reported Endocrine: No Symptoms Reported Hematologic/Lymphatic: No Symptoms Reported All Other Systems Reviewed Negative Unless Noted: Yes Past Zbbzpxq-Avhoaa-Lzrcax Hx Patient Social History Tobacco Use?: No Immunizations Up To Date First/Initial COVID19 Vaccinat: 09/02/20 Second COVID19 Vaccination Jabari: 09/30/20 Third COVID19 Vaccination Date: 09/02/20 Seasonal Allergies Seasonal Allergies: No Past Medical History Surgeries: Yes (HERNIA X 2, TRACH 195) Abdominal, Appendectomy Respiratory: No Currently Using CPAP: No Currently Using BIPAP: No Cardiac: No Neurological: No Genitourinary: No Gastrointestinal: Yes Diverticulosis, Gall Bladder Disease Musculoskeletal: No Endocrine: No HEENT: No Cancer: No Psychosocial: No Integumentary: No Blood Disorders: No Physical Exam Vital Signs Vital Signs - First Documented 05/15/22 18:32 Temp 36.2 Pulse 76 Resp 14 B/P (MAP) 190/93 (125) Pulse Ox 99 O2 Delivery Room Air Capillary Refill : Height/Weight/BMI Height: '" Weight: lbs. oz. kg; 26.00 BMI Method: General Appearance: WD/WN, no apparent distress HEENT: PERRL/EOMI, normal ENT inspection, pharynx normal Neck: non-tender, full range of motion, supple, normal inspection Respiratory: chest non-tender, lungs clear, normal breath sounds, no respiratory distress, no accessory muscle use Cardiovascular: regular rate, rhythm, no edema, no murmur Gastrointestinal: normal bowel sounds, soft; No distended, No guarding, No rebound; hernia (Incarcerated hernia with normal-appearing skin over it in his left groin) Extremities: normal range of motion, non-tender, normal inspection, no pedal edema, no calf tenderness, normal capillary refill Back: normal inspection Neurologic/Psychiatric: no motor/sensory deficits, alert, normal mood/affect Skin: normal color, warm/dry Lymphatic: no adenopathy Progress/Results/Core Measures Results/Orders My Orders Orders - REKHA JARQUIN MD Morphine Injection (Morphine Injection (05/15/22 18:42) Ed Iv/Invasive Line Start (05/15/22 18:46) Vital Signs/I&O 05/15/22 18:32 Temp 36.2 Pulse 76 Resp 14 B/P (MAP) 190/93 (125) Pulse Ox 99 O2 Delivery Room Air Progress Progress Note : Progress Note 71-year-old male with above history presenting for an incarcerated hernia. It was in his left groin, skin appeared normal overage, had mild to moderate amount of pain, but was very reasonable. Give him IV morphine for pain control. We ice the area for roughly 20 minutes and attempted reduction with gentle pressure x2 attempts with no success. Clinically he is not strangulated and clinically he is not obstructed. He is eating and drinking, no nausea or vomiting, passing flatus and had a bowel movement today. I contacted Dr. Cole, who is on-call today, and since he is not clinically strangulated, he stated it is okay for him to follow-up as an outpatient on Wednesday unless he develops new symptoms. Departure Impression Primary Impression: Incarcerated inguinal hernia Disposition: HOME, SELF-CARE Condition: Stable Departure-Patient Inst. Decision time for Depature: 19:36 Referrals: NACHO ARANA MD (PCP/Family) Primary Care Physician HALIMA PRIEST MD Patient Instructions: Groin Hernias Add. Discharge Instructions: You have what is called an incarcerated hernia. This still has blood flow and is good tissue. Things to look out for would be signs of obstruction such as not having bowel movements or being able to pass gas with more severe pain. Typically would also develop nausea or vomiting. If you notice any skin changes like worsening redness, or becomes darker dusky, I would want you to present to an ER. Otherwise, follow-up with Dr. PRIEST on Wednesday. REKHA JARQUIN MD May 15, 2022 18:44
== END 2022-05-15 19:39 | disposition home or self-care (01) ==
LOC: EDUNIT# 18:27 → ER FS 18:29
DX: K40.30 Unilateral inguinal hernia, with obstruction, without gangrene, not specified as recurrent (principal)

== ENCOUNTER 2022-05-20 05:40 | Outpatient (CLI) | payer MEDICARE, OTHER ==
[~2022-05-20] VITALS: Ht 165.1 cm; Wt 73.6 kg
== END 2022-05-20 09:42 | disposition home or self-care (01) ==
LOC: PREOP 05:40
PROVIDERS: ATTEND Surgery
DX: Z01.818 Encounter for other preprocedural examination (principal)

== ENCOUNTER 2022-05-21 12:23 | Day surgery (SDC) | payer MEDICARE, OTHER ==
[2022-05-21] VITALS (12 sets, daily range): BP systolic 124–218; BP diastolic 76–115
[~2022-05-21] VITALS: Ht 165.1 cm; Wt 73.6 kg
[2022-05-21] MEDS ORDERED: ceFAZolin INJECTION 2,000 MG in NS (IVPB) 50 ML IV ONE (12:45)
[2022-05-21] MEDS: LACTATED RINGERS 1,000 ML IV PRN ×2 (12:52→17:58)
[2022-05-21] MEDS ORDERED: ceFAZolin INJECTION 2,000 MG ONE (13:03)
[2022-05-21] MEDS ORDERED: NS (IVPB) 50 ML ONE (13:04)
--- NOTE | 2022-05-21 14:04 | Progress Note-Pre Operative ---
Pre-Operative Progress Note Date H&P Reviewed: May 21, 2022 Time H&P Reviewed: 14:00 History & Physical: H&P Reviewed, Patient Examed, No changes noted Pre-Operative Diagnosis: Recurrent Left inguinal herina AIME GONZALEZ APRN May 21, 2022 14:04
--- NOTE | 2022-05-21 14:05 | Discharge Inst-Surgical ---
D/C Lap Instructions-KIDO Reconcile Patient Problems Problems Reviewed?: Yes New, Converted, or Re-Newed RX: RX on Chart Follow Up Appt in 2 weeks Activity as tolerated No driving for 24 hours No driving while on pain medications Incentive Spirometry use every 2 hours while awake Regular Diet Symptoms to Report: Fever over 101 degree F, Nausea/Vomiting Infection Signs and Symptoms to report: Increased redness, Foul odor of wound, Increased drainage Bathing instructions: May shower Operative Area Clean/Dry; Keep incision clean/dry If any problems/questions: Contact your physician or go to Emergency Room AIME GONZALEZ APRN May 21, 2022 14:05
[2022-05-21] MEDS ORDERED: GLYCOPYRROLATE 0.2 MG/ML (ROBINUL) 2 ML VIAL ONE (14:11)
[2022-05-21] MEDS ORDERED: LIDOCAINE PF 2% 5 ML (XYLOCAINE) VIAL ONE (14:11)
[2022-05-21] MEDS ORDERED: MIDAZOLAM 2 MG/2 ML (VERSED) VIAL ONE (14:11)
[2022-05-21] MEDS ORDERED: NEOSTIGMINE 3 MG/3 ML VIAL ONE (14:11)
[2022-05-21] MEDS ORDERED: proPOfol 200 MG/20 ML (DIPRIVAN) VIAL IV ONE (14:11)
[2022-05-21] MEDS ORDERED: ROCURONIUM 10 MG/ML 5 ML SYRINGE IV ONE (14:11)
[2022-05-21] MEDS ORDERED: ONDANSETRON 4 MG/2 ML (SDV) Z0FRAN ONE (14:11)
[2022-05-21] MEDS ORDERED: fentaNYL INJ 100 MCG/2 ML AMP ONE (14:11)
[2022-05-21] MEDS ORDERED: oxyCODONE/APAP 5/325MG (PERCOCET 5) TABLET PO PRN (14:15)
[2022-05-21] MEDS ORDERED: morphine INJ 10 MG/ML 1ML (SYR OR VIAL) IVP PRN (14:15)
[2022-05-21] MEDS ORDERED: ONDANSETRON 4 MG/2 ML (SDV) Z0FRAN IVP PRN ×2 (14:15→17:15)
[2022-05-21] MEDS ORDERED: HYDROcodone/APAP 5 MG/325 MG (LORTAB) TAB PO ONE (14:15)
[2022-05-21] MEDS ORDERED: BUP/EPI 0.5% 1:200,000 (MARCAINE) 10ML VIAL IJ ONE ×2 (14:16→16:07)
[2022-05-21] MEDS ORDERED: HYDROmorphone 2 MG/ML VIAL (DILAUDID) ONE (16:28)
--- NOTE | 2022-05-21 16:53 | Progress Note-Post Operative ---
Post-Operative Progess Note Surgeon (s)/Truck Loader Overhead Crane (s) Surgeon HALIMA PRIEST MD Truck Loader Overhead Crane: brian santana OPERATOR CONTROL ROOM Pre-Operative Diagnosis Recurrent Left inguinal herina Post-Operative Diagnosis incarcerated right recurrent inguinal hernia. Procedure & Operative Findings Date of Procedure 05/21/22 Procedure Performed/Findings laparoscopic incarcerated right recurrent inguinal hernia repair with mesh. Anesthesia Type get Estimated Blood Loss Estimated blood loss (mL): minimal Specimens/Packing Specimens Removed none HALIMA PRIEST MD May 21, 2022 16:53
[2022-05-21] MEDS ORDERED: SEVOFLURANE (ULTANE) 15 ML INHAL SOLN ONE (16:54)
[2022-05-21] MEDS ORDERED: MEPERIDINE (DEMEROL) INJ 50 MG/ML ONE (17:05)
--- NOTE | 2022-05-21 17:08 | Anesthesia-General Post-Op ---
General Patient Condition Mental Status/LOC: Same as Preop Cardiovascular: Satisfactory Nausea/Vomiting: Absent Respiratory: Satisfactory Pain: Controlled Complications: Absent Post Op Complications Complications None Follow Up Care/Instructions Patient Instructions None needed. Anesthesia/Patient Condition Patient Condition Patient is doing well, no complaints, stable vital signs, no apparent adverse anesthesia problems. No complications reported per nursing. BLANCA CROUCH CRNA May 21, 2022 17:08
[2022-05-21] MEDS ORDERED: HYDROmorphone 2 MG/ML VIAL (DILAUDID) IV ONE (17:15)
[2022-05-21] MEDS ORDERED: morphine INJ 10 MG/ML 1ML (SYR OR VIAL) IVP ONE (17:15)
[2022-05-21] MEDS ORDERED: MEPERIDINE (DEMEROL) INJ 50 MG/ML IVP ONE (17:15)
[2022-05-21] MEDS ORDERED: LABETALOL HCL 20 MG/4 ML VIAL ONE (17:22)
[2022-05-21] MEDS ORDERED: LABETALOL HCL 20 MG/4 ML VIAL IV PRN (17:30)
[2022-05-21] MEDS ORDERED: morphine INJ 10 MG/ML 1ML (SYR OR VIAL) ONE (17:30)
--- NOTE | 2022-05-22 01:58 | OPERATIVE REPORT ---
DATE OF SERVICE: 05/21/2022 ATTENDING PRIMARY CARE PHYSICIAN: Dr. Bernard. PREOPERATIVE DIAGNOSIS: Incarcerated left recurrent inguinal hernia. POSTOPERATIVE DIAGNOSES: Incarcerated left recurrent inguinal hernia with omentum and seroma within the hernia sac. PROCEDURE: Laparoscopic recurrent incarcerated left inguinal hernia repair with mesh. SURGEON: Halima Priest MD BENEFITS CONSULTANT: Rolo Yeung APRN. ANESTHESIA: General endotracheal. ESTIMATED BLOOD LOSS: Minimal. FINDINGS: Incarcerated left recurrent inguinal hernia with omentum and seroma within the hernia sac. DISPOSITION: The patient tolerated the procedure well. INDICATIONS: The patient is a 71-year-old male known to us. He had symptomatic gallstones and on 05/01/2021 underwent a laparoscopic cholecystectomy. He was seen in the office and he reported about 2 to 3 weeks ago, he developed a bulge in the left inguinal region while doing lifting and exertion at home. This persisted and became more painful. He went to [facility] on 05/15/2022 and was found to have an incarcerated left inguinal hernia, an attempt for reduction was made; however, unable to. He was able to eat without any difficulty and had normal bowel movements. He has had two previous open inguinal hernia repairs on the left side and one on the right side. DESCRIPTION OF PROCEDURE: The patient was brought to the operating room, laid supine on the table. After adequate IV pain and sedative medications and general endotracheal intubation, the abdomen was prepped and draped in standard surgical fashion as was the perineum. A 0.5% Marcaine with epinephrine was used to anesthetize the overlying skin in the infraumbilical rim and a transverse skin incision was made and a sharp towel clamp was used to retract the abdominal wall anteriorly and a Veress needle was inserted with a low opening pressure of 0 mmHg. The abdomen was then insufflated to 15 mmHg pressure. Veress needle removed, and a 10 mm XL trocar placed followed by a 10 mm 45-degree angle laparoscope visualizing the peritoneal cavity. The patient was then placed in Trendelenburg position. There was a recurrent left incarcerated inguinal hernia, which appeared to be omentum as well as seroma within the hernia sac. There was no recurrent right inguinal hernia. Under direct visualization, we then proceed to place bilateral 5 mm ports after the skin and peritoneal lining were anesthetized using 0.5% Marcaine with epinephrine and transverse skin incision was made using a 15 blade. The patient was then placed in Trendelenburg position. We then proceeded with opening up the peritoneal lining starting laterally towards the conjoined tendon and inguinal ligament. We then proceeded medially until Calvin's ligament was reached. We then proceeded with inferior dissection encompassing the hernia sac. The hernia sac was relatively large in size and with pressure from the outside as well as pulling from the inside, we were able to completely reduce the hernia sac. A medium left 3DMax polypropylene mesh was then placed into the peritoneal cavity and tacked to Calvin's ligament medially with an absorbable tack and the inguinal ligament laterally. The peritoneal lining was then placed over the mesh and a few absorbable tacks placed to hold this in place with visualization of good hemostasis. The 10 mm port site fascia and peritoneum were then closed under direct visualization using a Shukri-Ezra device and 0 Vicryl suture. The abdomen was desufflated and remaining ports removed. All skin incisions were closed using 4-0 Monocryl running subcuticular sutures. Wounds were then cleaned and covered with Dermabond. The patient tolerated the procedure well. We will start IV normal pain medication as well as a clear liquid diet. When he is tolerating clears, has good pain control with oral pain medications, ambulating well, we will discharge him home where he will be instructed to do no heavy lifting or exertion for the next six weeks and also due to the fact that he continues to have recurrent inguinal hernias. Job ID: [id number] DocumentID: [id number] Dictated Date: 05/21/2022 17:02:41 Window Treatment Installer Date: 05/22/2022 01:57:21 Dictated By: HALIMA PRIEST MD [facility]
== END 2022-05-21 19:52 | disposition home or self-care (01) ==
LOC: SDC 12:23
PROVIDERS: ATTEND Surgery
DX: K40.31 Unilateral inguinal hernia, with obstruction, without gangrene, recurrent (principal); Z87.891 Personal history of nicotine dependence; E11.9 Type 2 diabetes mellitus without complications
CPT/HCPCS: 49651; 82947; 87081; 94664; C1781